=== PATIENT | female | born 1945 | race Caucasian/White ===

== ENCOUNTER → 2020-07-03 13:12 | Outpatient (BNVA) | payer BC, SELFPAY | PROVIDERS: PCP Physician Assistant; Visit Provider Hospitalist | DX: Z76.89 Persons encountering health services in other specified circumstances (principal) ==

== ENCOUNTER 2020-07-11 08:49 | Outpatient (REF) | payer BC, SELFPAY ==
--- NOTE | 2020-07-11 08:51 | CT_ITS ---
EXAMINATION: CT CHEST WITHOUT CONTRAST CLINICAL INFORMATION: Follow-up lung findings on previous chest CT COMPARISON: Previous chest CTA August 2019 TECHNIQUE: Multidetector volumetric CT imaging of the chest was done. Axial MIP volume rendering provided. Sagittal and coronal reformatted images were obtained. This CT examination was performed using dose optimization techniques as appropriate, variously including the following: *Automated exposure control *Adjustment of mA and/or kV according to patient size (this includes techniques or standardized protocols for targeted exams where dose is matched to indication/reason for exam; i.e. 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 In the left lower lobe is appears slightly improved from previous exam. This does not appear appreciably changed in the right middle and right lower lobe from August 2019 exam. The previously identified increased interstitial markings and areas of groundglass attenuation on August 2019 exam are no longer seen. There is a 3 x 7 mm peripheral or subpleural right upper lobe nodule and adjacent increased reticular markings for example axial image 111 series 7. This appears slightly decreased in size from 7 x 7 mm on previous exam. There is linear scarring or subsegmental atelectasis in the bilateral anterior upper lobes that is stable. MEDIASTINUM: The heart is upper normal in size. There is mild coronary artery calcification. There is no pericardial effusion. The thoracic aorta is normal in caliber. There are small mediastinal lymph nodes. The visualized thyroid gland is unremarkable. There is a large esophageal hernia. PLEURA: There is a left posterior medial diaphragmatic hernia containing fat. There is no pleural effusion or pleural thickening. AXILLA: No lymphadenopathy. UPPER ABDOMEN: Unremarkable. OSSEOUS STRUCTURES: There are degenerative changes of the spine. There is a probable T1 vertebral body hemangioma. There may be a bone infarct in the left humeral head. CT/CT chest wo con IMPRESSION: Right middle and bilateral lower lobe atelectasis or small infiltrates. This appears slightly improved in the left lower lobe and unchanged on the right. Slight interval decrease in size in the now 3 x 7 mm peripheral right upper lobe nodule The previously identified increased interstitial markings and groundglass attenuation on August 2019 exam is no longer seen. Large esophageal hernia. Upper normal-size heart mild coronary artery calcification.
== END 2020-07-11 08:50 | disposition home or self-care (01) ==
LOC: HO.CT 08:49
PROVIDERS: PCP Physician Assistant; Visit Provider Hospitalist
DX: R91.8 Other nonspecific abnormal finding of lung field (principal); J18.9 Pneumonia, unspecified organism
CPT/HCPCS: 71250

== ENCOUNTER 2020-08-28 08:23 | Outpatient (REF) | payer BC, SELFPAY ==
--- NOTE | 2020-08-28 08:26 | FL_ITS ---
EXAMINATION: XR GI SERIES CLINICAL INFORMATION: Hiatal hernia COMPARISON: Previous chest CT 07/11/2020 TECHNIQUE: Upper GI was performed using thin and thick barium and effervescent granules. A barium tablet was also administered. FINDINGS: There is abnormal esophageal motility with tertiary contractions. There is a moderate size esophageal hernia. This appears to represent a hiatal hernia. There is temporary stasis of the barium tablet first in the distal esophagus at the GE junction and then in the hiatal hernia above the diaphragm. No significant reflux is seen. No fold thickening, mass, stricture or ulcer is seen. FLUOROSCOPY TIME: 2.2 minutes DOSE AREA PRODUCT: 77 scott per centimeter squared. Total dose 164 mg. 44 saved fluoroscopic images. FL/FL upper GI series IMPRESSION: Abnormal esophageal motility. Moderate size hiatal hernia. Stasis of the barium tablet first at the GE junction and second in the hiatal hernia.
== END 2020-08-28 08:24 | disposition home or self-care (01) ==
LOC: HO.XRAY 08:23
PROVIDERS: PCP Physician Assistant; Visit Provider Internal Medicine Gastroenterology
DX: K44.9 Diaphragmatic hernia without obstruction or gangrene (principal)
CPT/HCPCS: 74240

== ENCOUNTER 2020-09-06 | Outpatient (REF) | payer BC, SELFPAY | END 2020-09-06 00:01 | disposition home or self-care (01) | LOC: HO.VC | PROVIDERS: Visit Provider Internal Medicine | DX: Z23 Encounter for immunization (principal) | CPT/HCPCS: 0011A ==

== ENCOUNTER 2020-09-25 09:47 | Outpatient (REF) | payer BC, SELFPAY ==
[2020-09-25 10:59] LABS: Hematocrit 45.6 % (37-47); Hemoglobin 14.2 g/dl (12.0-16.0); Mean Corpuscular HGB Conc 31.1 g/dl (31.0-35.0); Mean Corpuscular Hemoglobin 28.2 pg (27.0-33.0); Mean Corpuscular Volume 90.7 fL (80-98); Mean Platelet Volume 9.9 fL (9.4-12.3); Platelet Count 282 X10*3/uL (160-400); Red Blood Count 5.03 X10*6/uL (4.20-5.50); Red Cell Distribution Width 13.7 % (11.0-16.0); White Blood Count 8.8 X10*3/uL (4.8-10.8)
[2020-09-25 11:24] LABS: Estimated Average Glucose 120 mg/dL; Hemoglobin A1c % 5.8 %
[2020-09-25 11:34] LABS: Alanine Aminotransferase 15 U/L (0-31); Alkaline Phosphatase 85 U/L (39-117); Anion Gap 11 (12-20); Aspartate Amino Transferase 14 U/L (5-31); Blood Urea Nitrogen 18 mg/dL (9-16); Calcium 9.2 mg/dL (8.4-10.2); Carbon Dioxide 27 mmol/L (22-29); Chloride 107 mmol/L (96-108); Cholesterol 156 mg/dL; Estimated Glomerular Filt Rate > 60; Glucose Fasting 108 mg/dL (60-99); HDL Cholesterol 49 mg/dL; LDL Cholesterol Calculated 89 mg/dl; Potassium 4.4 mmol/L (3.3-5.1); Sodium 141 mmol/L (135-145); Total Protein 6.8 g/dL (6.5-8.0); Triglycerides 91 mg/dL
[2020-09-25 11:39] LABS: TSH reflex Free T4 1.45 uIU/mL (0.32-4.0)
== END 2020-09-25 09:48 | disposition home or self-care (01) ==
LOC: HO.LAB 09:47
PROVIDERS: PCP Physician Assistant; Visit Provider Physician Assistant
DX: I10 Essential (primary) hypertension (principal); Z13.1 Encounter for screening for diabetes mellitus
CPT/HCPCS: 36415; 80053; 80061; 83036; 84443; 85027

== ENCOUNTER 2020-10-03 | Outpatient (REF) | payer BC, SELFPAY | END 2020-10-03 00:01 | disposition home or self-care (01) | LOC: HO.VC | PROVIDERS: Visit Provider Internal Medicine | DX: Z23 Encounter for immunization (principal) | CPT/HCPCS: 0012A ==

== ENCOUNTER → 2020-10-16 12:51 | Outpatient (BNVA) | payer BC, SELFPAY | PROVIDERS: PCP Physician Assistant; Visit Provider Hospitalist ==

== ENCOUNTER 2020-12-20 08:30 | Outpatient (REF) | payer BC, SELFPAY ==
--- NOTE | ~2020-12-20 | MM_ITS ---
EXAMINATION: MM SCREENING DIGITAL BREAST TOMOSYNTHESIS, BILATERAL CLINICAL INFORMATION: Screening. Asymptomatic. The lifetime risk of breast cancer based on the Tyrer-Cuzick Model is 2.5%. COMPARISON: Mammography: March 10, 2019 and studies dating back to April 29, 2012 TECHNIQUE: Digital breast tomosynthesis is performed in both the craniocaudal and mediolateral oblique views along with computer-aided detection (CAD). Synthesized 2D images are generated from the tomosynthesis. FINDINGS: There are scattered areas of fibroglandular density (ACR BI-RADS breast composition Category b). There are no significant masses, abnormal calcifications, or other abnormalities. MM/MM tomosynthesis screening BI IMPRESSION: There are no significant changes from prior study. ASSESSMENT: BI-RADS 1: Negative RECOMMENDATION: Routine annual mammography screening. This patient's information was entered into a reminder system with a target due date for their next mammogram.
== END 2020-12-20 08:31 | disposition home or self-care (01) ==
LOC: HO.MAMMO 08:30
PROVIDERS: Visit Provider Physician Assistant
DX: Z12.31 Encounter for screening mammogram for malignant neoplasm of breast (principal)
CPT/HCPCS: 77063; 77067

== ENCOUNTER → 2021-04-02 10:59 | Outpatient (BNVA) | payer BC, SELFPAY | PROVIDERS: PCP Physician Assistant; Referring Provider Physician Assistant; Visit Provider Internal Medicine Cardiovascular Disease | DX: I10 Essential (primary) hypertension (principal); I51.81 Takotsubo syndrome; I21.29 ST elevation (STEMI) myocardial infarction involving other sites; J69.0 Pneumonitis due to inhalation of food and vomit; R91.8 Other nonspecific abnormal finding of lung field; Z98.890 Other specified postprocedural states | CPT/HCPCS: 93005 ==

== ENCOUNTER 2021-05-29 08:41 | Outpatient (REF) | payer BC, SELFPAY ==
--- NOTE | ~2021-05-29 | MM_ITS ---
EXAMINATION: BONE DENSITOMETRY CLINICAL INDICATION: Asymptomatic menopausal state. COMPARISON: Previous BD dated 01/27/2018 and baseline BD dated 09/20/2008. TECHNIQUE: Using a [employer] DXA System (software version: 13.1) manufactured by [employer], dual-energy x-ray absorptiometry was performed of the lumbar spine and left hip. The images are of good technical quality. Summary results are attached. FINDINGS: AP SPINE L1-L4:??There is dextrocurvature lumbar spine and degenerative changes which may cause overestimation of the lumbar bone mineral density.? Current: BMD 1.097 g/cm2, Z-score 0.6, T-score -0.7, normal, 14.2% increase from previous, 26.5% increase from baseline (<5% change is not significant). Prior: BMD 0.961 g/cm2. Baseline: BMD 0.867 g/cm2. LEFT FEMUR, NECK: Current: BMD 0.634 g/cm2, Z-score -1.3, T-score -2.9, osteoporosis. Prior: BMD 0.639 g/cm2. Baseline: BMD 0.745 g/cm2. LEFT FEMUR, TOTAL: Current: BMD 0.665 g/cm2, Z-score -1.4, T-score -2.7, osteoporosis, 5.7% increase from previous, 8.4% decrease from baseline (<5% change is not significant). Prior: BMD 0.629 g/cm2. Baseline: BMD 0.726 g/cm2. IDENTIFIED RISK FACTORS: Height loss, history of fracture (adult). Early menopause, secondary osteoporosis, hysterectomy, bilateral oophorectomy. HISTORY OF FRACTURE: Wrist. Humerus/shoulder. MEDICATIONS: Calcium supplements or multivitamin, vitamin D, bisphosphonates. MM/XR DEXA axial skeleton IMPRESSION: 1. DIAGNOSIS: Osteoporosis based on the lowest T-score value of -2.9 in the femoral neck applying World Health Organization criteria.? 2. 10-YEAR FRACTURE RISK PREDICTION, FRAX: According to the guidelines, FRAX calculation should only be performed on patients in the osteopenia bone density category. Therefore, FRAX was not performed on this patient. 3. Treatment Recommendations: NOF guidelines recommend consideration for treatment in postmenopausal women and men age 50 and older presenting with the following: -A hip or vertebral (clinical or morphometric) fracture. -T-score less than or equal to -2.5 at the femoral neck or spine after appropriate evaluation to exclude secondary causes. -Low bone mass at the hip or spine and a 10-year fracture probability by FRAX of greater than or equal to 3% for hip fracture or greater than or equal to 20% for major osteoporotic fracture based on the [place] adapted WHO algorithm. 4.?Other Recommendations: All treatment decisions require clinical judgment and consideration of individual patient factors, including patient preferences, comorbidities, previous drug use, risk factors not captured in the FRAX model (e.g. frailty, falls, vitamin D deficiency, increased bone turnover, interval significant decline in bone density) and possible under or overestimation of fracture risk by FRAX. Additional medical evaluation for secondary cause of low bone mineral density may be appropriate.?? FUTURE SCAN RECOMMENDATION: People with diagnosed cases of osteoporosis or at high risk for fracture should have regular bone mineral density tests. For patients eligible for Medicare, routine testing is allowed once every 2 years. The testing frequency can be increased to one year for patients who have rapidly progressing disease, those who are receiving or discontinuing medical therapy to restore bone mass, or have additional risk factors.
[2021-05-29 10:04] LABS: Hematocrit 44.2 % (37-47); Hemoglobin 13.7 g/dl (12.0-16.0); Mean Corpuscular Volume 90.2 fL (80-98); Mean Platelet Volume 9.3 fL (9.4-12.3); Platelet Count 314 X10*3/uL (160-400); Red Cell Distribution Width 13.8 % (11.0-16.0); White Blood Count 9.4 X10*3/uL (4.8-10.8)
[2021-05-29 10:38] LABS: Alanine Aminotransferase 17 U/L (0-31); Albumin Level 3.9 g/dL (3.5-5.0); Alkaline Phosphatase 92 U/L (39-117); Anion Gap 11 (12-20); Aspartate Amino Transferase 14 U/L (5-31); Bilirubin Total 0.8 mg/dL (0.0-1.0); Blood Urea Nitrogen 14 mg/dL (9-16); Calcium 9.7 mg/dL (8.4-10.2); Carbon Dioxide 29 mmol/L (22-29); Chloride 105 mmol/L (96-108); Cholesterol 148 mg/dL; Estimated Glomerular Filt Rate > 60; Glucose Fasting 102 mg/dL (60-99); HDL Cholesterol 44 mg/dL; LDL Cholesterol Calculated 84 mg/dl; Potassium 4.6 mmol/L (3.3-5.1); Sodium 140 mmol/L (135-145); Total Protein 6.6 g/dL (6.5-8.0); Triglycerides 102 mg/dL
[2021-05-29 10:43] LABS: Estimated Average Glucose 123 mg/dL; Hemoglobin A1C 151.0444 umol/L; Hemoglobin A1c % 5.9 %
[2021-05-29 11:04] LABS: TSH reflex Free T4 1.66 uIU/mL (0.32-4.0)
[2021-05-29 11:31] LABS: Creatinine Urine 123.22 mg/dL; Microalbum/Creatinine Ratio Ur 7.3 ug/mg cr
== END 2021-05-29 08:42 | disposition home or self-care (01) ==
LOC: HO.MAMMO 08:41
PROVIDERS: PCP Physician Assistant; Visit Provider Physician Assistant
DX: Z13.820 Encounter for screening for osteoporosis (principal); I10 Essential (primary) hypertension; Z78.0 Asymptomatic menopausal state
CPT/HCPCS: 36415; 77080; 80053; 80061; 82043; 83036; 84443; 85027

== ENCOUNTER 2021-06-25 09:37 | Outpatient (REF) | payer MEDICARE, SELFPAY ==
--- NOTE | ~2021-06-25 | CT_ITS ---
EXAMINATION: CT CHEST WITHOUT CONTRAST CLINICAL INFORMATION: Follow-up pulmonary findings/areas of atelectasis or infiltrate and nodule. COMPARISON: Previous chest CT scans, most recent July 2020. TECHNIQUE: Multidetector volumetric CT imaging of the chest was done. Axial MIP volume rendering provided. Sagittal and coronal reformatted images were obtained. This CT examination was performed using dose optimization techniques as appropriate, variously including the following: *Automated exposure control *Adjustment of mA and/or kV according to patient size (this includes techniques or standardized protocols for targeted exams where dose is matched to indication/reason for exam; i.e. extremities or head) *Use of iterative reconstruction technique DLP: 166 mGy-cm. FINDINGS: LUNGS: There is continued interval decrease in the small nodule or area of scarring or chronic subsegmental atelectasis in the posterior segment of the right upper lobe, for example axial image 92 series 5. There is question of a 6 mm right upper lobe nodule versus endobronchial soft tissue opacification, axial image 131 series 5. In retrospect, this measured 6 mm, axial image 149 series 5 on 08/11/2019 exam, 6 mm axial image 156 series 7 on July 2020 exam and does not appear appreciably changed. There is persistent atelectasis or small infiltrate seen in the right middle and bilateral lower lobes. This does not appear appreciably changed in the right middle and right lower lobes. There is increasing airspace disease or atelectasis in the left lower lobe. There is probable underlying right middle and bilateral lower lobe bronchial wall thickening. There is minimal atelectasis in the inferior segment of the lingula that appears unchanged. No endotracheal lesion. MEDIASTINUM: The heart is upper normal in size. There is coronary artery calcium. There is no pericardial effusion. The thoracic aorta is normal in caliber. There are small mediastinal lymph nodes. There are no enlarged lymph nodes. There is a large esophageal hernia. PLEURA: There is no pleural effusion. No pleural mass or thickening. There is a left posterior diaphragmatic hernia containing fat. AXILLA: No lymphadenopathy. UPPER ABDOMEN: Unremarkable. OSSEOUS STRUCTURES: There are degenerative changes of the spine. Stable probable T1 vertebral body hemangioma and sclerotic lesion in the left humeral head. CT/CT chest wo con IMPRESSION: Right middle and bilateral lower lobe atelectasis/infiltrates; this is slightly increased in the left lower lobe compared to previous exams. There is probable bronchial wall thickening as well. 6 mm central right upper lobe nodule versus bronchial soft tissue opacification. In retrospect, this is stable probably back to August 2019 exam. Upper normal-size heart and coronary artery calcification. Large esophageal hernia. Left diaphragmatic hernia containing fat. Fleischner guidelines were followed.
== END 2021-06-25 09:38 | disposition home or self-care (01) ==
LOC: HO.CT 09:37
PROVIDERS: PCP Physician Assistant; Visit Provider Hospitalist
DX: R91.8 Other nonspecific abnormal finding of lung field (principal)
CPT/HCPCS: 71250

== ENCOUNTER → 2021-07-19 12:32 | Outpatient (BNVA) | payer MEDICARE, SELFPAY | PROVIDERS: PCP Physician Assistant; Visit Provider Hospitalist | DX: J45.40 Moderate persistent asthma, uncomplicated (principal); J18.9 Pneumonia, unspecified organism; R91.8 Other nonspecific abnormal finding of lung field; K44.9 Diaphragmatic hernia without obstruction or gangrene | CPT/HCPCS: 99212 ==

== ENCOUNTER 2021-12-24 13:11 | Outpatient (REF) | payer MEDICARE, SELFPAY ==
--- NOTE | ~2021-12-24 | MM_ITS ---
EXAMINATION: MM SCREENING DIGITAL BREAST TOMOSYNTHESIS, BILATERAL CLINICAL INFORMATION: Screening. Asymptomatic. The lifetime risk of breast cancer based on the Tyrer-Cuzick Model is 2%. COMPARISON: Mammography: 12/20/2020, 03/10/2019, 01/14/2018 TECHNIQUE: Digital breast tomosynthesis is performed in both the craniocaudal and mediolateral oblique views along with computer-aided detection (CAD). Synthesized 2D images are generated from the tomosynthesis. FINDINGS: There are scattered areas of fibroglandular density (ACR BI-RADS breast composition Category b). Parenchymal pattern is similar to prior studies. Again, there are scattered minor asymmetries. No developing density or architectural abnormality. There are no significant masses, abnormal calcifications, or other abnormalities. The axilla are unremarkable. MM/MM tomosynthesis screening BI IMPRESSION: No mammographic evidence of malignancy. ASSESSMENT: BI-RADS 2: Benign RECOMMENDATION: Routine annual mammography screening. This patient's information was entered into a reminder system with a target due date for their next mammogram.
== END 2021-12-24 13:12 | disposition home or self-care (01) ==
LOC: HO.MAMMO 13:11
PROVIDERS: Visit Provider Physician Assistant
DX: Z12.31 Encounter for screening mammogram for malignant neoplasm of breast (principal)
CPT/HCPCS: 77063; 77067

== ENCOUNTER → 2022-03-19 12:49 | Outpatient (BNVA) | payer MEDICARE, SELFPAY | PROVIDERS: PCP Physician Assistant; Visit Provider Hospitalist | DX: J45.40 Moderate persistent asthma, uncomplicated (principal); J18.9 Pneumonia, unspecified organism; R91.8 Other nonspecific abnormal finding of lung field; K44.9 Diaphragmatic hernia without obstruction or gangrene | CPT/HCPCS: 99212 ==

== ENCOUNTER → 2022-04-03 10:56 | Outpatient (BNVA) | payer MEDICARE, SELFPAY | PROVIDERS: PCP Physician Assistant; Referring Provider Physician Assistant; Visit Provider Internal Medicine Cardiovascular Disease | DX: I51.81 Takotsubo syndrome (principal); I10 Essential (primary) hypertension | CPT/HCPCS: 99212 ==

== ENCOUNTER 2022-06-11 08:14 | Day surgery (SDC) | payer MEDICARE, SELFPAY ==
--- NOTE | 2022-06-10 12:49 | P.CONAN_ITS ---
Documented by User: Silvana Cooney NP 06/10/22 12:51 HPI - Anesthesia Eval Consult details Narrative: 77yo F for Upper Endoscopy and Colonoscopy Hx Takatsubo CMP, resolved per 03/2022 Cardiac Office visit, pt is active without symptoms PMFSH Active Problems Active Problems: All Active Problems (Updated 06/10/22 @ 11:51 by Anjali Teran RN) Screening for diabetes mellitus (DM) (Acute) HTN (hypertension) (Acute) Annual physical exam (Acute) Post-menopausal (Acute) Osteoporosis (Acute) Hiatal hernia (Acute) Asthma (Acute) Pneumonia (Acute) Pulmonary nodules (Acute) Takotsubo cardiomyopathy (Acute) Past Medical History Medical History Asthma Hiatal hernia Hyperlipidemia Pneumonia Pulmonary nodules Takotsubo cardiomyopathy Tubular adenoma Ulcerative proctitis Family History Family History Daughter No problems noted. Father No problems noted. Mother No problems noted. Sister In good health Sister In good health Brother In good health Son In good health Daughter In good health Surgical History Surgical History H/O wrist surgery H/O: hysterectomy History of colonoscopy Social History Social History Housing: House Alcohol intake: never Patient Tobacco Use Status: Never used Tobacco e-Cigarette/Vaping Use: Never Used Second Hand Smoke Exposure: No Use of substances other than those prescribed or required for medical reasons: No Are you DNR?: No Advance Directives: No Advance Directives Information Provided: Yes service: No Current occupational status: retired Cognitive needs: No Hearing needs: No Vision needs: No Meds Allergies Allergy/AdvReac Type Severity Reaction Status Date / Time all antibiotics Allergy Severe Colitis Uncoded 05/20/22 13:27 Home Medications Medication Instructions Recorded Confirmed Last Taken Type aspirin 81 mg tablet,delayed 81 mg PO DAILY 07/03/20 05/20/22 Unknown History release lactobacillus combination no.8 3 3,000 mmu cells PO DAILY 07/03/20 05/20/22 Unknown History billion cell capsule (Adult Probiotic) multivitamin 1 tab PO DAILY 07/03/20 05/20/22 Unknown History ascorbate calcium (vitamin C) 500 500 mg PO DAILY 04/02/21 05/20/22 Unknown History mg tablet cholecalciferol (vitamin D3) 25 25 mcg PO DAILY 04/02/21 05/20/22 Unknown History mcg (1,000 unit) capsule omega-3 fatty acids 1,000 mg 1,000 mg PO DAILY 04/02/21 05/20/22 Unknown History capsule (Fish Oil Concentrate) atorvastatin 80 mg tablet 1 tab PO DAILY 06/10/22 06/10/22 Unknown History dicyclomine 20 mg tablet 1 tab PO 06/10/22 06/10/22 Unknown History Exam Exam Date and Time: June 10, 2022 1249 Narrative Narrative: EKG 03/2022 SB @ 56 Assessment and Plan Assessment Anesthesia Assessment: Chart Reviewed Documented by User: Sabine Shearer MD 06/11/22 11:27 [facility] Past Medical History Medical History Asthma Hiatal hernia Hyperlipidemia Pneumonia Pulmonary nodules Takotsubo cardiomyopathy Tubular adenoma Ulcerative proctitis Family History Family History Daughter No problems noted. Father No problems noted. Mother No problems noted. Sister In good health Sister In good health Brother In good health Son In good health Daughter In good health Family history of problems with anesthesia: No Surgical History Surgical History H/O wrist surgery H/O: hysterectomy History of colonoscopy History of Problems with Anesthesia: Yes (PONV) Social History Social History Housing: House Alcohol intake: never Patient Tobacco Use Status: Never used Tobacco e-Cigarette/Vaping Use: Never Used Second Hand Smoke Exposure: No Use of substances other than those prescribed or required for medical reasons: No Are you DNR?: No Advance Directives: No Advance Directives Information Provided: Yes service: No Current occupational status: retired Cognitive needs: No Hearing needs: No Vision needs: No Meds Allergies Allergy/AdvReac Type Severity Reaction Status Date / Time all antibiotics Allergy Severe Colitis Uncoded 05/20/22 13:27 Home Medications Medication Instructions Recorded Confirmed Last Taken Type aspirin 81 mg tablet,delayed 81 mg PO DAILY 07/03/20 05/20/22 Unknown History release lactobacillus combination no.8 3 3,000 mmu cells PO DAILY 07/03/20 05/20/22 Unknown History billion cell capsule (Adult Probiotic) multivitamin 1 tab PO DAILY 07/03/20 05/20/22 Unknown History ascorbate calcium (vitamin C) 500 500 mg PO DAILY 04/02/21 05/20/22 Unknown History mg tablet cholecalciferol (vitamin D3) 25 25 mcg PO DAILY 04/02/21 05/20/22 Unknown History mcg (1,000 unit) capsule omega-3 fatty acids 1,000 mg 1,000 mg PO DAILY 04/02/21 05/20/22 Unknown History capsule (Fish Oil Concentrate) atorvastatin 80 mg tablet 1 tab PO DAILY 06/10/22 06/10/22 Unknown History dicyclomine 20 mg tablet 1 tab PO 06/10/22 06/10/22 Unknown History Exam Height,Weight and Vital Signs: Height 5 ft 5 in Weight 74.843 kg Vital Signs Temp Pulse Resp BP Pulse Ox O2 Del Method 06/11/22 09:36 96.5 F L 75 16 108/78 97 Room Air Airway Mallampati Class: II TM Dist: >3cm Neck ROM: Full Loose/Missing/Broken Teeth: Yes (Some extractions) Heart: RRR Lungs: CTAB Assessment and Plan Final Anesthetic Review Family History of Problems with Anesthesia: No History of Problems with Anesthesia: Yes (PONV) NPO: Yes ASA Class: III Final Preanesthetic Review: No Changes in Pt Med Stat, Meds/Allgs Chart Reviewed, Consent Obtained/Reviewed and Anes Risks/Benef Reviewed Patient Risk: Intermediate Procedure Risk: Low Assessment/Block/Sedation in SS: Assess/Block/Sedation-SS Anesthetic Plan Anesthetic Plan: MAC: Disposition: Standard PACU
[2022-06-11 09:28] VITALS: BMI 27.4
[2022-06-11 09:36] VITALS: BP 108/78; PULSE 75; RESP 16; TEMP 35.8; O2SAT 97
[2022-06-11] MEDS: Lactated Ringers 1,000 ML 100 ML IVCONT (09:51)
--- NOTE | 2022-06-11 10:24 | MHC.SHP ---
Pre-Procedural Eval Section A Date of Service: 06/11/22 Section B Chief Complaint: Noninfective gastroenteritis and colitis, unspecif Details of Present Illness: see H&P no changes Relevant Family History (Specify if Yes): No Relevant Social History: None Present Medications: see Short Stay Collaborative assessment Medical History: No relevant PMH History of Previous Operations: No relevant previous surgery Allergies: Allergies Allergy/AdvReac Type Severity Reaction Status Date / Time all antibiotics Allergy Severe Colitis Uncoded 05/20/22 13:27 Review of Systems Sugical H&P ROS: Negative: Constitution, Cardiovascular, Respiratory, Neurological, Psychiatric, Hem-Onc, Allergic/Immunologic, Gastrointestinal, Genitourinary, Musculoskeletal, Integumentary, Endocrine and Eyes/Ears/Nose/Throat Exam Surgical H&P Exam: Normal: HEENT, Normal: Heart, Normal: Lungs, Normal: Extremities, Normal: Abdomen, Normal: Skin and Normal: Neurological Plan Diagnosis/Plan: Unchanged I have reviewed the history and physical and performed a pertinent physical examination on my patient. No changes have occurred unless specified.
--- NOTE | 2022-06-11 11:25 | PM.OP ---
Brief Operative Note Date of Service: 06/11/22 Pre-op diagnosis: colitis abnl ugi series Post-op diagnosis: same Procedure: egd colonoscopy Surgeon: Naeem Lopez Anesthesia: MAC Was an Electronic Warfare Officer used for this Procedure?: No Estimated blood loss (mL): 5 Pathology: other Condition: stable Disposition: PACU
[2022-06-11 11:32] VITALS: BP 119/73; PULSE 72; RESP 16; TEMP 36.4; O2SAT 97
[2022-06-11 11:47] VITALS: BP 133/77; PULSE 66; RESP 16; TEMP 36.1; O2SAT 97
--- NOTE | 2022-06-11 12:40 | OP_ITS ---
SURGEON: Naeem Lopez MD INDICATIONS: 1. Abnormal upper GI series. 2. Colitis. PREOPERATIVE DIAGNOSIS: POSTOPERATIVE DIAGNOSIS: PROCEDURE PERFORMED: 1. Upper endoscopy with biopsy. 2. Colonoscopy to the terminal ileum with biopsy and snare polypectomy. ESTIMATED BLOOD LOSS: COMPLICATIONS: ANESTHESIA: Monitored anesthesia care. ASSISTANTS: SPECIMENS: DESCRIPTION OF PROCEDURE: History and physical performed. The risks and benefits of the procedure were explained to the patient. Informed consent was obtained. The procedure was performed on 06/11/2022. The patient was placed in the left lateral decubitus position. The Olympus video gastroscope was introduced into the esophagus, stomach, and duodenum. Examination was performed. The scope was removed. She was repositioned for colonoscopy. Digital rectal exam was performed and was found to be normal. The Olympus pediatric video colonoscope was introduced into the rectum and advanced to the cecum without difficulty. The cecum was identified by transillumination, palpation, and identification of ileocecal valve. Examination was performed. The scope was removed. She tolerated the procedure well and was taken to the recovery area in stable condition. FINDINGS: Upper endoscopy: 1. Esophagus: The esophagus was normal. It was slightly tortuous. There was no esophagitis. Biopsies were obtained in the EG junction. There was a 7 cm hiatal hernia. 2. Stomach: The stomach showed no evidence of masses or ulcers. There were multiple benign less than 10 mm gastric polyps, 2 of these were biopsied. These were appear consistent with fundic gland polyps. Antral biopsies were also obtained. 3. Duodenum: The bulb and second portion were normal. Colonoscopy: The terminal ileum was briefly examined and appeared normal. There was a less than 5 mm polyp in the cecum, which was removed with the biopsy forceps. A second polyp at 75 cm measuring approximately 6 mm was removed with a cold snare and then a 9 to 10 mm polyp at 25 cm was removed with a hot snare. Random biopsies were obtained from the right colon, left colon, and rectosigmoid. There did not appear to be any active colitis in the rectum as we had observed on previous examinations. Retroflexed examination did show moderate-sized internal hemorrhoids. IMPRESSION: 1. Hiatal hernia. 2. Gastric polyps. 3. Colon polyps. RECOMMENDATION: Follow up the biopsy results. MD DOROTHY Osorio/ZEV / [id number]
== END 2022-06-11 12:23 | disposition home or self-care (01) ==
PROVIDERS: PCP Physician Assistant; Visit Provider Internal Medicine Gastroenterology
PROC: (CPT 45385; principal; 2022-06-11 09:40)
DX: K52.9 Noninfective gastroenteritis and colitis, unspecified (principal); Z86.010 Personal history of colon polyps; R93.3 Abnormal findings on diagnostic imaging of other parts of digestive tract; D12.0 Benign neoplasm of cecum; D12.4 Benign neoplasm of descending colon; K63.5 Polyp of colon; K64.8 Other hemorrhoids; K31.7 Polyp of stomach and duodenum; K44.9 Diaphragmatic hernia without obstruction or gangrene; J45.909 Unspecified asthma, uncomplicated; E78.00 Pure hypercholesterolemia, unspecified; E78.5 Hyperlipidemia, unspecified; I10 Essential (primary) hypertension; Z79.51 Long term (current) use of inhaled steroids; Z79.82 Long term (current) use of aspirin; Z79.899 Other long term (current) drug therapy; Z88.0 Allergy status to penicillin; Z88.1 Allergy status to other antibiotic agents
CPT/HCPCS: 45385; 45380; 43239; 88305; 88313; 88342; J2405

== ENCOUNTER 2022-08-15 16:15 | Outpatient (REF) | payer MEDICARE, SELFPAY ==
--- NOTE | ~2022-08-15 | CT_ITS ---
EXAMINATION: CT CHEST WITHOUT CONTRAST CLINICAL INFORMATION: Abnormal lung findings. COMPARISON: CT chest without contrast 06/25/2021. TECHNIQUE: Multidetector volumetric CT imaging of the chest was done. Axial MIP volume rendering provided. Sagittal and coronal reformatted images were obtained. This CT examination was performed using dose optimization techniques as appropriate, variously including the following: *Automated exposure control *Adjustment of mA and/or kV according to patient size (this includes techniques or standardized protocols for targeted exams where dose is matched to indication/reason for exam; i.e. extremities or head) *Use of iterative reconstruction technique DLP: 152 mGy-cm FINDINGS: LOAN COLLECTOR: Well-inflated lungs. LUNGS: There is persistent scarring or chronic subsegmental atelectasis in the posterior segment right lower lobe and right middle lobe with air bronchograms likely chronic atelectasis. Again visualized is a 6 mm nodule right upper lobe likely intrabronchiolar, stable. No additional lung nodules are visualized. MEDIASTINUM: Thyroid lobes are symmetric and normal. The central trachea and the bronchi are widely patent. There are small shotty lymph nodes in the mediastinum. Heart size is normal. No pericardial effusion seen. There is a small to moderate-size hiatal hernia. CORONARY ARTERY CALCIFICATION: There is trace pericardial effusion seen. PLEURA: No pleural effusion, mass or thickening seen. AXILLA: No lymphadenopathy. UPPER ABDOMEN: Visualized liver, spleen, pancreas and bilateral adrenal glands are unremarkable. OSSEOUS STRUCTURES: No lytic or sclerotic process seen. Mild degenerative disc changes lower dorsal spine. CT/CT chest wo IV con IMPRESSION: There is right middle lobe and right lower lobe chronic atelectasis with air bronchograms, stable to last two CT chest exams. Right upper lobe intrabronchiolar 6 mm nodule is stable. Moderate-size hiatal hernia, stable. Fleischner guidelines were followed.
== END 2022-08-15 16:16 | disposition home or self-care (01) ==
LOC: HO.CT 16:15
PROVIDERS: PCP Physician Assistant; Visit Provider Hospitalist
DX: R91.8 Other nonspecific abnormal finding of lung field (principal)
CPT/HCPCS: 71250

== ENCOUNTER → 2022-09-19 12:52 | Outpatient (BNVA) | payer MEDICARE, SELFPAY | PROVIDERS: PCP Physician Assistant; Visit Provider Hospitalist | DX: J45.40 Moderate persistent asthma, uncomplicated (principal); R91.8 Other nonspecific abnormal finding of lung field; K44.9 Diaphragmatic hernia without obstruction or gangrene | CPT/HCPCS: 99212 ==

== ENCOUNTER 2022-10-10 15:00 | Outpatient (REF) | payer MEDICARE, SELFPAY ==
--- NOTE | ~2022-10-10 | XR_ITS ---
EXAMINATION: XR KNEE, RIGHT CLINICAL INFORMATION: Right knee pain COMPARISON: 12/16/2011 TECHNIQUE: Four views of the right knee. FINDINGS: Mild degenerative changes of the right knee joint with joint space narrowing and osteophytosis, seen to the greater degree in the lateral compartment. Again seen is a well-corticated 8.4 x 2.8 cm intraosseous lesion of the distal femoral metaphysis with internal serpiginous appearance which may reflect bone infarct versus cartilaginous bony lesion. XR/XR knee RT 3V IMPRESSION: 1. Mild degenerative changes of the right knee joint. 2. Again seen is a well-corticated 8.4 x 2.8 cm intraosseous lesion of the distal femoral metaphysis with internal serpiginous appearance which may reflect bone infarct versus cartilaginous bony lesion.
== END 2022-10-10 15:01 | disposition home or self-care (01) ==
LOC: HO.XRAY 15:00
PROVIDERS: PCP Physician Assistant; Visit Provider Physician Assistant
DX: M25.561 Pain in right knee (principal)
CPT/HCPCS: 73562

== ENCOUNTER 2023-01-27 08:48 | Outpatient (REF) | payer MEDICARE, SELFPAY ==
--- NOTE | ~2023-01-27 | MR_ITS ---
EXAMINATION: MR KNEE WITHOUT CONTRAST, RIGHT CLINICAL INFORMATION: Right knee pain and swelling following a twisting injury. Evaluate for a meniscal injury. COMPARISON: Right knee radiographs dated 10/10/2022. TECHNIQUE: MRI of the knee without contrast was performed using routine sequences on a high-field scanner. FINDINGS: MENISCI: Medial Meniscus: Inner margin fraying/tearing of the posterior root with an adjacent parameniscal cyst measuring up to 0.7 cm in greatest dimension. Lateral Meniscus: Oblique femoral articular surface tear of the anterior horn and root extending to the inner margin of the meniscal body and posterior horn. Incomplete inner margin radial tear of the posterior horn/root junction measuring up to 1.1 cm in ML dimension. Medial extrusion of the meniscal body. LIGAMENTS: Cruciate: Intact Collateral: Intact EXTENSOR MECHANISM: Intact ARTICULAR CARTILAGE/BONE: Patellofemoral Compartment: Inferior patellar and inferior medial trochlea articular cartilage signal heterogeneity with tiny marginal osteophytes. Medial Compartment: Mild articular cartilage thinning with tiny marginal osteophytes. Lateral Compartment: Full-thickness articular cartilage loss at the weightbearing lateral femoral condyle and lateral tibial plateau with underlying subchondral cystic change and marginal osteophytes. 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 JOINT FLUID AND BURSAE: Moderate joint effusion and trace Farrell's cyst with synovitis. MR/MR knee RT wo con IMPRESSION: 1. Oblique femoral articular surface tear of the lateral meniscus anterior horn and root extending to the inner margin of the meniscal body and posterior horn. Incomplete inner margin radial tear of the posterior horn/root junction measuring up to 1.1 cm in M dimension. Medial extrusion of the meniscal body. 2. Inner margin fraying/tearing of the medial meniscus posterior root with an adjacent parameniscal cyst measuring up to 0.7 cm. 3. Crgfbbzy-ou-qeejos lateral as well as mild patellofemoral and medial compartment osteoarthritis. Moderate joint effusion and trace Farrell's cyst with synovitis.
== END 2023-01-27 08:49 | disposition home or self-care (01) ==
LOC: HO.MRI 08:48
PROVIDERS: PCP Physician Assistant; Visit Provider Physician Assistant
DX: S83.206A Unspecified tear of unspecified meniscus, current injury, right knee, initial encounter (principal)
CPT/HCPCS: 73721

== ENCOUNTER 2023-02-05 09:30 | Outpatient (REF) | payer MEDICARE, SELFPAY | END 2023-02-05 09:31 | disposition home or self-care (01) | LOC: HO.LAB 09:30 | PROVIDERS: PCP Physician Assistant; Visit Provider Physician Assistant | DX: I10 Essential (primary) hypertension (principal) | CPT/HCPCS: 36415; 80053; 82043; 85027 ==

== ENCOUNTER 2023-02-26 10:00 | Outpatient (RCR) | payer MEDICARE, SELFPAY ==
--- NOTE | 2023-01-01 15:52 | MHC.PT.EP ---
[facility] [place] Office [place] Office [place] Office [address] [phone] F: [phone] F: [phone] F: [phone] F: [phone] Physical Therapy Plan of Care Date of Evaluation: Date of Surgery: NA Diagnosis: Pain in R knee Assessment: Gracia is a 77 year female who is referred to PT for pain in R knee . She reports of having sudden onset of pain about 3 months back. She sustained a twisting injury. She trialed managing her symptoms at home with ice and rest however due to lack of improvement she decided to trial PT. She has a MRI scheduled for end of January. On PT examination she presented with 6/10 pain with standing, walking, sit to standing, getting in and out of care and stairs, TTP along infero-medial border of patella, decreased knee ROM, decreased R LE strength, impaired posture and gait. She lives alone and is independent with all ADLS however modifies the way she does them. 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 She would benefit from skilled PT to address the aforementioned impairments and improve tolerance to functional activities. Frequency and Duration: The patient will be seen 2/week for 5 weeks Short Term Goals: 1. Pt will have 50% decrease in which will enable her sleep through the night in 2 weeks. 2. Pt will be able to move knee through full plane of motion without pain which will enable her to tolerate sit to accident examiner 3 weeks Senior Care Goals: 1. Pt will demonstrate an increase in muscle strength by 1 grade which will enable her to negotiate stairs without pain in 5 weeks. 2. Pt will be independent with all HEP for symptom management and maintenance following d/c in 5 weeks Treatment Plan: Modalities to reduce pain, spasms and effusion. Manual therapy to restore motion and function. Therapeutic exercise to improve strength and flexibility. Neuromuscular re-education for posture and balance. Therapeutic activities to return to functional activities of daily living. Electronically signed by: Alesha Menard PT DPT Please sign and return to therapist. Thank you for your referral.
== END 2023-03-21 13:49 | disposition home or self-care (01) ==
LOC: HO.PT 10:00
PROVIDERS: PCP Physician Assistant; Visit Provider Physician Assistant
DX: M25.561 Pain in right knee (principal)
CPT/HCPCS: 97014; 97110; 97161; 97530

== ENCOUNTER 2023-03-12 10:42 | Outpatient (REF) | payer MEDICARE, SELFPAY ==
--- NOTE | ~2023-03-12 | MM_ITS ---
EXAMINATION: MM SCREENING DIGITAL BREAST TOMOSYNTHESIS, BILATERAL CLINICAL INFORMATION: Screening. Asymptomatic. The lifetime risk of breast cancer based on the Tyrer-Cuzick Model is 2.2%%. COMPARISON: Mammography: 12/24/2021, 12/20/2020, and dating back to 2011. TECHNIQUE: Digital breast tomosynthesis is performed in both the craniocaudal and mediolateral oblique views along with computer-aided detection (CAD). Synthesized 2D images are generated from the tomosynthesis. FINDINGS: There are scattered areas of fibroglandular density (ACR BI-RADS breast composition Category b). Parenchymal pattern is similar to prior studies. Again, there are scattered minor nodular parenchymal asymmetries. No developing density or architectural abnormality. There no suspicious masses, suspicious developing grouped calcifications, or areas of architectural distortion. The overall parenchymal pattern is stable from prior exams. MM/MM tomosynthesis screening BI IMPRESSION: No mammographic evidence of malignancy. Stable benign findings. ASSESSMENT: BI-RADS BI-RADS 2 - Benign Findings RECOMMENDATION: Routine annual mammography screening. 1 year F/U This examination should not preclude the clinical evaluation of a suspicious palpable abnormality. This patient's information was entered into a reminder system with a target due date for their next mammogram.
== END 2023-03-12 10:43 | disposition home or self-care (01) ==
LOC: HO.MAMMO 10:42
PROVIDERS: PCP Physician Assistant; Visit Provider Physician Assistant
DX: Z12.31 Encounter for screening mammogram for malignant neoplasm of breast (principal)
CPT/HCPCS: 77063; 77067

== ENCOUNTER → 2023-03-12 10:45 | Outpatient (BNV) | payer MEDICARE, SELFPAY | PROVIDERS: PCP Physician Assistant; Visit Provider Radiology Diagnostic Radiology | DX: Z12.31 Encounter for screening mammogram for malignant neoplasm of breast (principal) | CPT/HCPCS: 77063; 77067 ==

== ENCOUNTER 2023-04-10 09:02 | Outpatient (REF) | payer MEDICARE, SELFPAY ==
[2023-04-10 10:33] LABS: Hematocrit 42.2 % (37.0-47.0); Hemoglobin 13.6 g/dl (12.0-16.0); Mean Corpuscular HGB Conc 32.2 g/dl (31.0-35.0); Mean Corpuscular Hemoglobin 29.2 pg (27.0-33.0); Mean Corpuscular Volume 90.6 fL (80.0-98.0); Mean Platelet Volume 9.7 fL (9.4-12.3); Platelet Count 266 X10*3/uL (160-400); Red Blood Count 4.66 X10*6/uL (4.20-5.50); Red Cell Distribution Width 13.6 % (11.0-16.0)
[2023-04-10 11:26] LABS: Alanine Aminotransferase 12 U/L (0-31); Albumin Level 3.7 g/dL (3.5-5.0); Alkaline Phosphatase 76 U/L (39-117); Anion Gap 8 (12-20); Aspartate Amino Transferase 13 U/L (5-31); Bilirubin Total 0.5 mg/dL (0.0-1.0); Blood Urea Nitrogen 14 mg/dL (9-16); Calcium 9.9 mg/dL (8.4-10.2); Carbon Dioxide 27 mmol/L (22-29); Chloride 107 mmol/L (96-108); Cholesterol 144 mg/dL (<200); Estimated Glomerular Filt Rate > 60; Glucose Fasting 108 mg/dL (60-99); HDL Cholesterol 45 mg/dL (>40); LDL Cholesterol Calculated 83 mg/dL (<100); Potassium 4.3 mmol/L (3.3-5.1); Sodium 138 mmol/L (135-145); Total Protein 6.8 g/dL (6.5-8.0); Triglycerides 83 mg/dL (<150)
[2023-04-10 11:42] LABS: TSH reflex Free T4 1.63 uIU/mL (0.32-4.0)
[2023-04-10 12:12] LABS: Creatinine Urine 112.07 mg/dL; Microalbum/Creatinine Ratio Ur 5.3 ug/mg cr (<30)
== END 2023-04-10 09:03 | disposition home or self-care (01) ==
LOC: HO.LAB 09:02
PROVIDERS: Absent Provider Physician Assistant; PCP Physician Assistant; Referring Provider Physician Assistant; Visit Provider Nurse Practitioner Family
DX: I10 Essential (primary) hypertension (principal); I51.81 Takotsubo syndrome
CPT/HCPCS: 36415; 80053; 80061; 82043; 82570; 84443; 85027; 93005; 99212

== ENCOUNTER 2023-04-10 09:02 | Outpatient (AMB) | payer MEDICARE, SELFPAY ==
[2023-04-10 09:20] VITALS: BP 130/72; PULSE 54
--- NOTE | 2023-04-10 09:20 | A.OFFVIS_ITS ---
Intake Vital Signs 04/10/23 09:20 Height 5 ft 5 in Weight 180 lb 5.41 oz BMI 30.0 BP 130/72 Blood Pressure Location Lt brachial Position Sitting Pulse 54 Intake Visit Reasons: 1 year follow up Intake Note: 1 year f/u Humidifier Operator Required: No Allergies all antibiotics Allergy (Severe, Uncoded 09/19/22 13:07) Colitis Medication List - Last Reconciled 04/10/23 by Nicole Yee, [employer] WORKER-C albuterol sulfate 90 mcg/actuation 2 inhalations inhalation Q6H PRN 30 days ascorbate calcium (vitamin C) 500 mg PO DAILY aspirin 81 mg PO DAILY atorvastatin 80 mg PO DAILY smquozgnpwr-bhkrgdgnt-iofrjgeq 100-62.5-25 mcg (Trelegy Ellipta) 1 inh inhalation DAILY lactobacillus combination no.8 (Adult Probiotic) 3,000 mmu cells PO DAILY lisinopril 2.5 mg PO DAILY 90 days metoprolol succinate ER 25 mg PO DAILY 90 days multivitamin 1 tab PO DAILY omega-3 fatty acids (Fish Oil Concentrate) 1,000 mg PO DAILY HPI 1 year follow up HPI Details Gracia is a 77-year-old female past medical history of hypertension, takotsubo cardiomyopathy who presents for follow-up. Today she reports she has been doing very well since her last visit 04/03/2022. She has no concerning symptoms. She denies chest discomfort, shortness of breath, palpitations, presyncope, syncope, PND, orthopnea or edema. She takes her medications as directed. She reports good activity tolerance. 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 No cardiac questions or concerns. [facility] Medical History Tubular adenoma of colon (~2009) Ulcerative proctitis Hyperlipidemia Osteoporosis (~2008) Hiatal hernia Asthma Pneumonia Pulmonary nodules Takotsubo cardiomyopathy Surgical History History of endoscopy History of surgery on wrist History of hysterectomy History of colonoscopy Family History Daughter No problems noted. Father No problems noted. Mother No problems noted. Sister In good health Sister In good health Brother In good health Son In good health Daughter In good health Social History Housing: House Alcohol intake: never Patient Tobacco Use Status: Never used Tobacco e-Cigarette/Vaping Use: Never Used Second Hand Smoke Exposure: No service: No Current occupational status: retired Cognitive needs: No Hearing needs: No Vision needs: No Review of Systems Const All systems reviewed & are unremarkable except as noted in HPI and below ENT Denies dizziness Card Denies chest pain, Denies chest pain at rest, Denies chest pain with activity, Denies rapid heart rate, Denies pedal edema, Denies edema, Denies leg edema, Denies lightheadedness, Denies palpitations, Denies dyspnea, Denies dyspnea on exertion and Denies orthopnea Resp Denies cough, Denies dyspnea and Denies dyspnea on exertion GI Denies hematochezia and Denies change in stool character Musc Denies abnormal gait, Denies limited range of motion, Denies muscle cramps, Denies muscle weakness, Denies numbness, Denies radiating pain into limb, Denies stiffness and Denies tingling Neuro Denies abnormal gait, Denies dizziness, Denies numbness and Denies tingling Endo Denies palpitations Physical Exam Vital Signs: Last Vital Signs Pulse 54 04/10/23 09:20 BP 130/72 04/10/23 09:20 BMI result Body Mass Index 30.0 Const General: cooperative, healthy appearing, comfortable and no acute distress Orientation/consciousness: patient oriented x3 Neck Neck: Yes normal visual inspection and Yes no JVD Resp Effort & Inspection: normal respiratory effort Auscultation: clear to auscultation bilaterally, no crackles, no rales, no rhonchi and no wheezes Cardio Jugular venous distension: no JVD Rate: regular rate Rhythm: regular rhythm Heart sounds: S1 normal heart sound present, S2 normal heart sound present, no gallops, no murmurs and no rubs Neuro General: patient oriented x3 Extrem General: Yes normal to inspection, No no pedal edema and No calf tenderness Psych Appearance: grossly normal Mental Status: mental status grossly normal Speech and movement: Normal speech and movement present Office Procedures EKG Details: Today, read by me, sinus bradycardia, low-voltage QRS, no change in complex morphology compared to prior EKG, low voltage could be from body habitus, rate 54 [id number], Complete Assessment & Plan Assessment & Plan (1) Takotsubo cardiomyopathy: Code(s): I51.81 - Takotsubo syndrome Plan: History of Takotsubo's cardiomyopathy in the setting of aspiration pneumonia. Cardiac catheterization done at that time showed no significant coronary artery disease. Treated with lisinopril and metoprolol for neurohormonal modulation with normalization of EF and wall motion. Last echocardiogram done 03/03/2020 showed normal EF, mild LVH, no regional wall motion abnormalities. Today she reports she has been feeling very well with no concerning symptoms. EKG today shows sinus Eliseo, low-voltage QRS which could be related to body habitus, rate 54. Complex morphology no significant change from last EKG. Labs done 02/05/2023 showed potassium 4.2, creatinine 0.66. Blood pressure 130/72, heart rate 54. Will continue current management without change. Signs and symptoms of heart failure reviewed. Will update echo prior to her next visit. Cardiology follow- up in 1 year, sooner if needed. (2) HTN (hypertension): Code(s): I10 - Essential (primary) hypertension Qualifiers: Hypertension type: essential hypertension Qualified Code(s): I10 - Essential (primary) hypertension Orders: Orders CA echo transthoracic complete 11 Months I51.81 - Takotsubo syndrome Coding Level of Care Code Est Pt Level 4 (91128) Diagnoses Takotsubo cardiomyopathy I51.81 Essential hypertension I10 Hypertension type: essential hypertension CPT Codes EKG - CPT: 18313-[id number], Complete ([id number]) Time Spent (min) 24 Comment chart review, document, interview assess
== END 2023-04-10 09:49 | disposition home or self-care (01) ==
PROVIDERS: PCP Physician Assistant; Referring Provider Physician Assistant; Visit Provider Nurse Practitioner Family
DX: I51.81 Takotsubo syndrome (principal); I10 Essential (primary) hypertension
CPT/HCPCS: 93010; 99214

== ENCOUNTER 2023-05-01 14:42 | Outpatient (AMB) | payer MEDICARE, SELFPAY ==
--- NOTE | 2023-05-01 14:59 | MHC.OFFVIS ---
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 Patient reports some time in December of this year she was lifting her grandson and twisted her knee. States same knee was injured about 15 year ago. She was referred to PT which helped with her pain. She also had an MRI done. Currently her complaint is feeling unstable, like her knee will give out with stair use. No other tx. 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 She states she has pain in her right knee which is aggravated with stair use and bending. Her pain is currently improved since her DOI. She also c/o occasional instability and feeling like her knee giving out. She had undergone physical therapy and electrode therapy which provided her relief. She has not had any other treatment. She has a history of right knee injury about 15 years ago. [facility] Medical History Tubular adenoma of colon (~2009) Ulcerative proctitis Hyperlipidemia Osteoporosis (~2008) Hiatal hernia Asthma Pneumonia Pulmonary nodules Takotsubo cardiomyopathy Surgical History History of endoscopy History of surgery on wrist History of hysterectomy History of colonoscopy Family History Daughter No problems noted. Father No problems noted. Mother No problems noted. Sister In good health Sister In good health Brother In good health Son In good health Daughter In good health Social History Housing: House Alcohol intake: never Patient Tobacco Use Status: Never used Tobacco e-Cigarette/Vaping Use: Never Used Second Hand Smoke Exposure: No service: No Current occupational status: retired Cognitive needs: No Hearing needs: No Vision needs: No Review of Systems Const All systems reviewed & are unremarkable except as noted in HPI and below Physical Exam Vital Signs: BMI result Body Mass Index 30.0 Const General: cooperative, healthy appearing, comfortable, no acute distress, well developed and alert Orientation/consciousness: patient oriented x3 HEENT Head: Yes normal to inspection, Yes normocephalic and Yes atraumatic Eyes General: appearance normal, both eyes and all related structures Resp Effort & Inspection: normal respiratory effort and able to speak in complete sentences Cardio Rate: regular rate Peripheral pulses: Peripheral pulses 2+ throughout GI Palpation (GI): Soft to palpation Skin Lesions: no lesions Rashes: no rashes Neuro General: patient oriented x3 Extrem Other: Right knee: Skin intact, no erythema or joint effusion. No tenderness along the medial or lateral joint line. Full ROM with crepitus. Negative Lisy?s. No ligamentous laxity. NVI. Results Reviewed Results Reviewed: XR right knee IMPRESSION: 1. Mild degenerative changes of the right knee joint. 2. Again seen is a well-corticated 8.4 x 2.8 cm intraosseous lesion of the distal femoral metaphysis with internal serpiginous appearance which may reflect bone infarct versus cartilaginous bony lesion. MRI left knee IMPRESSION: 1. Oblique femoral articular surface tear of the lateral meniscus anterior horn and root extending to the inner margin of the meniscal body and posterior horn. Incomplete inner margin radial tear of the posterior horn/root junction measuring up to 1.1 cm in M dimension. Medial extrusion of the meniscal body. 2. Inner margin fraying/tearing of the medial meniscus posterior root with an adjacent parameniscal cyst measuring up to 0.7 cm. 3. Rkvzmzlu-ui-lfsmsk lateral as well as mild patellofemoral and medial compartment osteoarthritis. Moderate joint effusion and trace Farrell's cyst with synovitis. Assessment & Plan Assessment & Plan (1) Osteoarthritis of right knee: Code(s): M17.11 - Unilateral primary osteoarthritis, right knee Qualifiers: Osteoarthritis type: primary Qualified Code(s): M17.11 - Unilateral primary osteoarthritis, right knee Plan She is going to continue working on her physical therapy exercises and increase activity as tolerated. If she develops symptoms with activities that limit her, she will contact me for a follow-up, otherwise as needed. Patient Instructions: Scribed for Kenyetta Moreno PA-C, by Oni Avila medical sales consultant, on 05/01/2023 at 3:00 PM Kenyetta PRAKASH PA-C, have personally reviewed and agree with the information entered by the julieta. Coding Level of Care Code New Pt Level 3 (15824) Diagnoses Primary osteoarthritis of right knee M17.11 Osteoarthritis type: primary
== END 2023-05-01 15:26 | disposition home or self-care (01) ==
PROVIDERS: PCP Physician Assistant; Visit Provider Physician Assistant
DX: M17.11 Unilateral primary osteoarthritis, right knee (principal)
CPT/HCPCS: 99203

== ENCOUNTER → 2023-05-01 14:42 | Outpatient (BNVA) | payer MEDICARE, SELFPAY | PROVIDERS: PCP Physician Assistant; Visit Provider Physician Assistant ==

== ENCOUNTER 2023-08-15 13:59 | Outpatient (REF) | payer MEDICARE, SELFPAY ==
--- NOTE | ~2023-08-15 | XR_ITS ---
EXAMINATION: XR CHEST 2 VIEWS CLINICAL INFORMATION: Dyspnea. COMPARISON: CT chest dated 08/15/2022; chest radiograph dated 08/22/2019. TECHNIQUE: Frontal and lateral views of the chest were obtained. FINDINGS: The heart, great vessels, pulmonary vasculature and mediastinum are normal. The lungs show no focal infiltrate, effusion or pneumothorax. There is a large hiatus hernia, with adjacent left base scar/subsegmental atelectasis. There is lesser left base scar/subsegmental atelectasis. There is no acute osseous abnormality. 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 XR/XR chest 2V IMPRESSION: 1. No focal infiltrate or congestive heart failure is seen. 2. There is a large hiatus hernia, with adjacent left base scar/subsegmental atelectasis. 3. There is stable mild left base scar/subsegmental atelectasis.
== END 2023-08-15 14:00 | disposition home or self-care (01) ==
LOC: HO.XRAY 13:59
PROVIDERS: PCP Physician Assistant; Visit Provider Hospitalist
DX: R06.00 Dyspnea, unspecified (principal); J45.41 Moderate persistent asthma with (acute) exacerbation; R91.8 Other nonspecific abnormal finding of lung field; K44.9 Diaphragmatic hernia without obstruction or gangrene; J40 Bronchitis, not specified as acute or chronic
CPT/HCPCS: 71046; 94640; 99212

== ENCOUNTER 2023-08-15 13:59 | Outpatient (AMB) | payer MEDICARE, SELFPAY ==
--- NOTE | 2023-08-15 14:14 | A.OFFVIS_ITS ---
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 Initially she was on Advair. She was having symptoms of wheezing and shortness of breath. She was then placed on trilogy. Trilogy was very effective for her improving her respiratory status significantly. However, insurance would not cover. Therefore she was placed on murmur. Anoro does not appear to be as effective for her. She is still requiring short-acting beta agonist. She did have a chest x-ray demonstrating some minimal atelectasis at the bases. The patient will need a repeat x-ray. She did meantime she continues to exercise and staying active. She is using the singular at nighttime which appears to be effective for her. 07/03/2020 the patient is here for pulmo janeth follow-up visit. Overall she is doing very well from a respiratory status. Has been using her respiratory medications with good effect. Has not required any rescue medication or pred nisone over the summer or fall. However, back in August when she was out to eat she aspirated her drink is started developing difficulty breathing. EMS was called and she was brought to the [facility] ED. there she had a CT scan of the chest demonstrating significant mosaic pattern and ground-glass opacities as well as a right lower lobe pneumonia. In addition to that she had multiple pulmonary nodules including a 7 mm nodule. She did rule in for an HI and was transferred to [facility]. 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 On further questioning the patient does have significant dysphagia and heartburn with reflux symptoms. Her CT scan of the chest did demonstrate a moderate hiatal hernia. She will follow-up with her mainframe software developer. 09/19/2022 the patient is here for a pulm onary follow-up visit. The patient overall is feeling better. During the last several months she did develop a respiratory illness. She did call it in we did send a medications. She did feel better afterwards. Now she is back to her baseline. She continues use the Trelegy inhaler with good effect. Sometime she does it every other day but is still works well for her. She has not required any of her rescue inhaler in the last several weeks. The patient is staying active. She continues to work part- time. She did have a CT scan of the chest done here which was personally by me. I did explain to her that she has underlying pulmonary nodules. Her pulmonary nodules have been stable now for more than 2 years. Therefore it is safe to say that there are benign. Still though will continue to monitor closely symptoms. No further serial CT scans warranted but if any symptoms were to worsen or any new symptoms arise we can we evaluate those nodules. She the CT scan also demonstrates the significant moderate size hiatal hernia. She did have an evaluation by her mainframe software developer and he was reassuring to her. Therefore she is going to continue with the reflux diet and making sure that she sleeps elevated to minimize any respiratory manifestations. 08/15/2023 the patient is here for sick visit. She has been sick now for few weeks. Initially started like a viral syndrome URI. Positive sick contacts. Now is worsening with worsening cough chest congestion. Moderate severity. Has a hard time sleeping because of the coughing.. She did test negative for COVID. The patient has been using her respiratory medications with no significant improvement. Here in the office she has significant wheezing on exam. She was given 1 treatment with albuterol and her symptoms improved. therefore, will provide her with a nebulizer machine at this time. The patient also will undergo a chest x-ray. [facility] Medical History (Updated 08/17/23 @ 21:58 by Ramon Valdovinos MD) Dyspnea Tubular adenoma of colon (~2009) Ulcerative proctitis Hyperlipidemia Osteoporosis (~2008) Hiatal hernia Asthma Pneumonia Pulmonary nodules Takotsubo cardiomyopathy Surgical History History of endoscopy History of surgery on wrist History of hysterectomy History of colonoscopy Family History Daughter No problems noted. Father No problems noted. Mother No problems noted. Sister In good health Sister In good health Brother In good health Son In good health Daughter In good health Social History Housing: House Alcohol intake: never Patient Tobacco Use Status: Never used Tobacco e-Cigarette/Vaping Use: Never Used Second Hand Smoke Exposure: No service: No Current occupational status: retired Cognitive needs: No Hearing needs: No Vision needs: No Review of Systems Const Reports fatigue, Denies fever(s) and Denies headache(s) Eyes Denies loss of vision ENT Denies vertigo, Denies dizziness, Denies headache(s) and Denies sore throat Card Denies chest pain, Denies leg edema and Denies lightheadedness Resp Reports chest congestion, Reports cough, Denies hemoptysis and Reports wheezing GI Denies abdominal pain, Denies melena, Denies constipation, Denies diarrhea and Denies vomiting Denies urinary frequency, Denies dysuria and Denies urinary urgency Musc Denies arthralgias, Denies joint swelling, Denies numbness and Denies tingling Neuro Denies Abnormal speech present, Denies behavioral changes, Denies vertigo, Denies dizziness, Denies headache(s), Denies loss of vision, Denies memory loss, Denies numbness and Denies tingling Psych Denies anxiety, Denies behavioral changes, Denies depression, Denies memory loss and Denies panic attacks Endo Reports fatigue Dawood/Lymph Denies easy bleeding and Denies easy bruising Aller/Immun Reports wheezing Physical Exam Vital Signs: Last Vital Signs Pulse 80 08/15/23 14:16 Pulse Ox 95 08/15/23 14:16 Oxygen Delivery Method Room Air 08/15/23 14:16 BMI result Body Mass Index 28.3 Const General: alert Neck Neck: Yes normal visual inspection, Yes full ROM and Yes no lymphadenopathy Chest Chest palpation & inspection: normal inspection of the chest Resp Effort & Inspection: prolonged expiratory phase Auscultation: rhonchi, wheezes and diminished lung sounds Cardio Rate: regular rate Rhythm: regular rhythm Heart sounds: S1 normal heart sound present and S2 normal heart sound present GI Palpation (GI): Soft to palpation and nontender Auscultation: normal bowel sounds Skin General skin exam: rashes and/or lesions noted Neuro Speech: No Abnormal speech present Office Procedures Nebulizer Treatment Nebulizer Treatment [id number]/MDI RX initial, or Nebulizer Subsequent Treatment Office Meds ipratropium 0.5 mg-albuterol 3 mg (2.5 mg base)/3 mL nebulization soln Performing Provider: Ramon Valdovinos MD Performing Location: [facility] [place] Pulmonology Services Administered by: Ade Tony LPN on 08/15/23 14:30 Dose Route Admin Location Dispensed Lot Number Expiration Date NDC Contractor Buyer 3 mL inhalation 3 mL [id number] 01/31/25 8326-3402-07 [employer] Assessment & Plan Assessment & Plan (1) Asthma: Code(s): J45.909 - Unspecified asthma, uncomplicated Qualifiers: Asthma complication type: with acute exacerbation Asthma persistence: persistent Asthma severity: moderate Qualified Code(s): J45.41 - Moderate persistent asthma with (acute) exacerbation (2) Pulmonary nodules: Code(s): R91.8 - Other nonspecific abnormal finding of lung field (3) Hiatal hernia: Code(s): K44.9 - Diaphragmatic hernia without obstruction or gangrene (4) Bronchitis: Code(s): J40 - Bronchitis, not specified as acute or chronic Plan nebulizer provided start prednisone start Augmentin CXR Continue Trelegy. LISA as needed Reflux diet Pulmonary nodules stable for more than 2 years. F/U 4-6 months Orders: Orders AMB Nebulizer Treatment 08/15/23 J45.909 - Unspecified asthma, uncomplicated XR chest 2V 08/15/23 R06.00 - Dyspnea, unspecified Medications: New albuterol sulfate 2.5 mg (3 mL) inhalation Q6H 30 days PRN 180 mL 11RF shortness of breath or wheezing prednisone PO daily; Take 2 tabs daily x 5 days, then 1 tablet daily x 5 days 10 days 15 tabs 0RF amoxicillin-pot clavulanate 875-125 mg 1 tab PO BID 10 days 20 tabs 0RF Coding Level of Care Code Est Pt Level 4 (34848) Diagnoses Moderate persistent asthma with acute exacerbation J45.41 Asthma complication type: with acute exacerbation Asthma persistence: persistent Asthma severity: moderate Pulmonary nodules R91.8 Hiatal hernia K44.9 Bronchitis J40 CPT Codes Nebulizer Treatment - Nebulizer Treatment, initial or subsequent: 63419- Nebulizer/MDI RX initial, or Nebulizer Subsequent Treatment ([id number]) Time Spent (min) 18
[2023-08-15 14:16] VITALS: PULSE 80; O2SAT 95; BMI 28.3
== END 2023-08-15 15:07 | disposition home or self-care (01) ==
PROVIDERS: PCP Physician Assistant; Visit Provider Hospitalist
DX: J45.41 Moderate persistent asthma with (acute) exacerbation (principal); R91.8 Other nonspecific abnormal finding of lung field; K44.9 Diaphragmatic hernia without obstruction or gangrene; J40 Bronchitis, not specified as acute or chronic
CPT/HCPCS: 99214

== ENCOUNTER 2023-09-11 13:52 | Outpatient (AMB) | payer MEDICARE, SELFPAY ==
--- NOTE | 2023-09-11 13:54 | A.OFFVIS_ITS ---
Intake Vital Signs 09/11/23 14:00 Height 5 ft 5 in Weight 182 lb BMI 30.3 BP 130/80 Blood Pressure Location Lt brachial Position Sitting Pulse 86 Pulse Oximetry (%) 98 Intake Visit Reasons: 1 Yr Follow Up COPD Allergies No Known Allergies Allergy (Verified 09/11/23 13:54) HPI HPI Comments History of Present Illness Details The patient is a 78-year-old woman known asthma COPD overlap syndrome. Initially she was on Advair. She was having symptoms of wheezing and shortness of breath. She was then placed on trilogy. Trilogy was very effective for her improving her respiratory status significantly. However, insurance would not cover. Therefore she was placed on murmur. Anoro does not appear to be as effective for her. She is still requiring short-acting beta agonist. She did have a chest x-ray demonstrating some minimal atelectasis at the bases. The patient will need a repeat x-ray. She did meantime she continues to exercise and staying active. She is using the singular at nighttime which appears to be effective for her. 07/03/2020 the patient is here for pulmo rosay follow-up visit. Overall she is doing very well from a respiratory status. Has been using her respiratory medications with good effect. Has not required any rescue medication or prednisone over the summer or fall. However, back in August when she was out to eat she aspirated her drink is started developing difficulty breathing. EMS was called and she was brought to the [facility] ED. there she had a CT scan of the chest demonstrating significant mosaic pattern and ground-glass opacities as well as a right lower lobe pneumonia. In addition to that she had multiple pulmonary nodules including a 7 mm nodule. She did rule in for an OR and was transferred to [facility]. 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 On further questioning the patient does have significant dysphagia and heartburn with reflux symptoms. Her CT scan of the chest did demonstrate a moderate hiatal hernia. She will follow-up with her furniture finisher helper. 09/19/2022 the patient is here for a pulm onary follow-up visit. The patient overall is feeling better. During the last several months she did develop a respiratory illness. She did call it in we did send a medications. She did feel better afterwards. Now she is back to her baseline. She continues use the Trelegy inhaler with good effect. Sometime she does it every other day but is still works well for her. She has not required any of her rescue inhaler in the last several weeks. The patient is staying active. She continues to work part- time. She did have a CT scan of the chest done here which was personally by me. I did explain to her that she has underlying pulmonary nodules. Her pulmonary nodules have been stable now for more than 2 years. Therefore it is safe to say that there are benign. Still though will continue to monitor closely symptoms. No further serial CT scans warranted but if any symptoms were to worsen or any new symptoms arise we can we evaluate those nodules. She the CT scan also demonstrates the significant moderate size hiatal hernia. She did have an evaluation by her furniture finisher helper and he was reassuring to her. Therefore she is going to continue with the reflux diet and making sure that she sleeps elevated to minimize any respiratory manifestations. 08/15/2023 the patient is here for sick visit. She has been sick now for few weeks. Initially started like a viral syndrome URI. Positive sick contacts. Now is worsening with worsening cough chest congestion. Moderate severity. Has a hard time sleeping because of the coughing.. She did test negative for COVID. The patient has been using her respiratory medications with no significant improvement. Here in the office she has significant wheezing on exam. She was given 1 treatment with albuterol and her symptoms improved. therefore, will provide her with a nebulizer machine at this time. The patient also will undergo a chest x-ray. 09/11/2023 the patient is here for a pulmo nary follow-up visit. The patient is feeling better. She did complete the course of prednisone and also the antibiotics. She still complains of shortness of breath with activity though. [id number]-[id number] severity. She does continue to use the Trelegy inhaler. Currently on 100. She is still having wheezing on examination. Therefore based on that will go ahead and increase her Trelegy to the 200 mcg dose. This will be helpful. Although she also has a component of chronic bronchitis. She will benefit from additional steroids but steroids have adverse effects. Therefore, due to her frequent exacerbations will start her on Daliresp. Will start her with small dose name steadily increase it to the full dose for the maximum effect. She did have a chest x-ray done still has a large hiatal hernia based on the x-ray. The patient may be symptomatic with will have her get a barium swallow to assess the degree progression. She does have a GI doctor. If we see that there is any irregularity to the mucosa or any changes to the hiatal hernia then she should follow-up for endoscopy. [facility] Medical History (Updated 09/12/23 @ 08:47 by Ramon Valdovinos MD) Asthma-COPD overlap syndrome Dyspnea Tubular adenoma of colon (~2009) Ulcerative proctitis Hyperlipidemia Osteoporosis (~2008) Hiatal hernia Asthma Pneumonia Pulmonary nodules Takotsubo cardiomyopathy Surgical History History of endoscopy History of surgery on wrist History of hysterectomy History of colonoscopy Family History Daughter No problems noted. Father No problems noted. Mother No problems noted. Sister In good health Sister In good health Brother In good health Son In good health Daughter In good health Social History Housing: House Alcohol intake: never Patient Tobacco Use Status: Never used Tobacco e-Cigarette/Vaping Use: Never Used Second Hand Smoke Exposure: No service: No Current occupational status: retired Cognitive needs: No Hearing needs: No Vision needs: No Review of Systems Const Reports fatigue, Denies fever(s) and Denies headache(s) Eyes Denies loss of vision ENT Denies vertigo, Denies dizziness, Denies headache(s) and Denies sore throat Card Denies chest pain, Denies leg edema and Denies lightheadedness Resp Reports cough, Denies hemoptysis and Reports wheezing GI Denies abdominal pain, Denies melena, Denies constipation, Denies diarrhea and Denies vomiting Denies urinary frequency, Denies dysuria and Denies urinary urgency Musc Denies arthralgias, Denies joint swelling, Denies numbness and Denies tingling Neuro Denies Abnormal speech present, Denies behavioral changes, Denies vertigo, D enies dizziness, Denies headache(s), Denies loss of vision, Denies memory loss, Denies numbness and Denies tingling Psych Denies anxiety, Denies behavioral changes, Denies depression, Denies memory loss and Denies panic attacks Endo Reports fatigue Dawood/Lymph Denies easy bleeding and Denies easy bruising Aller/Immun Reports wheezing Physical Exam Vital Signs: Last Vital Signs Pulse 86 09/11/23 14:00 BP 130/80 09/11/23 14:00 Pulse Ox 98 09/11/23 14:00 BMI result Body Mass Index 30.3 Const General: alert Neck Neck: Yes normal visual inspection, Yes full ROM and Yes no lymphadenopathy Chest Chest palpation & inspection: normal inspection of the chest Resp Effort & Inspection: prolonged expiratory phase Auscultation: no rhonchi, wheezes and diminished lung sounds Cardio Rate: regular rate Rhythm: regular rhythm Heart sounds: S1 normal heart sound present and S2 normal heart sound present GI Palpation (GI): Soft to palpation and nontender Auscultation: normal bowel sounds Skin General skin exam: rashes and/or lesions noted Neuro Speech: No Abnormal speech present Assessment & Plan Assessment & Plan (1) Asthma-COPD overlap syndrome: Code(s): J44.89 - Other specified chronic obstructive pulmonary disease (2) Asthma: Code(s): J45.909 - Unspecified asthma, uncomplicated Qualifiers: Asthma complication type: with acute exacerbation Asthma persistence: persistent Asthma severity: moderate Qualified Code(s): J45.41 - Moderate p ersistent asthma with (acute) exacerbation (3) Pulmonary nodules: Code(s): R91.8 - Other nonspecific abnormal finding of lung field (4) Hiatal hernia: Code(s): K44.9 - Diaphragmatic hernia without obstruction or gangrene Plan nebulizer provided Continue Trelegy, increase to 100->200 start Daliresp 250 LISA as needed Reflux diet barium swallow Pulmonary nodules stable for more than 2 years. F/U 4-6 months Orders: Orders FL barium swallow 09/11/23 K21.9 - Gastro-esophageal reflux disease without esophagitis Medications: New roflumilast (Daliresp) 250 mcg PO DAILY 30 days 30 tabs 11RF J44.9 - Chronic obstructive pulmonary disease, unspecified nphiedtxmoj-dydlvitkp-bqimwyrd 200-62.5-25 mcg (Trelegy Ellipta) 1 inh inhalation DAILY 90 days 3 ea 3RF Discontinued gidsjtlbjjr-ypbrekmat-mssivdja 100-62.5-25 mcg (Trelegy Ellipta) Discontinued Reason: Doctor's Order 1 inh inhalation DAILY 180 grams 3RF Coding Level of Care Code Est Pt Level 4 (05516) Diagnoses Asthma-COPD overlap syndrome J44.89 Moderate persistent asthma with acute exacerbation J45.41 Asthma complication type: with acute exacerbation Asthma persistence: persistent Asthma severity: moderate Pulmonary nodules R91.8 Hiatal hernia K44.9 Time Spent (min) 18
[2023-09-11 14:00] VITALS: BP 130/80; PULSE 86; O2SAT 98; BMI 30.3
== END 2023-09-11 14:17 | disposition home or self-care (01) ==
PROVIDERS: PCP Physician Assistant; Visit Provider Hospitalist
DX: J44.89 Other specified chronic obstructive pulmonary disease (principal); J45.41 Moderate persistent asthma with (acute) exacerbation; R91.8 Other nonspecific abnormal finding of lung field; K44.9 Diaphragmatic hernia without obstruction or gangrene
CPT/HCPCS: 99214

== ENCOUNTER → 2023-09-11 13:52 | Outpatient (BNVA) | payer MEDICARE, SELFPAY | PROVIDERS: Visit Provider Hospitalist | DX: J44.89 Other specified chronic obstructive pulmonary disease (principal); J45.41 Moderate persistent asthma with (acute) exacerbation; R91.8 Other nonspecific abnormal finding of lung field; K44.9 Diaphragmatic hernia without obstruction or gangrene | CPT/HCPCS: 99212 ==

== ENCOUNTER 2023-12-04 08:47 | Outpatient (REF) | payer MEDICARE, SELFPAY ==
--- NOTE | ~2023-12-04 | FL_ITS ---
EXAMINATION: XR FLUOROSCOPY UPPER GI WITH AIR CLINICAL INFORMATION: Follow-up hiatal hernia COMPARISON: Upper GI 2020 TECHNIQUE: Fluoroscopic air contrast upper GI examination was performed utilizing standard techniques with thin and thick barium and effervescent granules. Numerous spot images were obtained. FINDINGS: Dual and single contrast images of the esophagus demonstrate a dilated esophagus. No evidence of mass, or ulcerations identified. There is to and fro motion of the barium column with nonpropulsive tertiary contractions noted. There is episodic corkscrew appearance of the distal esophagus suggesting spasm. There is moderate narrowing of the GE junction above the hiatal hernia. There is a small increase in size of the large paraesophageal hiatal hernia, with the majority of the fundus located in the intrathoracic cavity. No significant gastroesophageal reflux was seen during the course of the examination and on reflux views. Dual contrast and single contrast images of the stomach demonstrated the majority of the fundus located in the intrathoracic cavity. There is a moderate narrowing of the stomach as it passes through the hiatus of the diaphragm. There are multiple areas of contrast pooling in the fundus of the stomach that may represent small superficial aphthous ulcers. Contrast freely passed into the gastric antrum and duodenal bulb without delay. Single and air-contrast images of the duodenal bulb demonstrate no abnormality. The duodenal sweep has a normal appearance, course, and mucosal fold appearance. The imaged proximal jejunum has a normal fold pattern and caliber. There is rapid transit of the barium column, with contrast observed in the right colon at the end of the examination. FLUOROSCOPY TIME: 8 minutes 4 seconds Number of Spot Images: 17 Number of Cine: 12 DOSE AREA PRODUCT: [id number] uGy-m2 (microgray-meter squared) FL/FL barium swallow with air IMPRESSION: 1. Esophageal dysmotility, with episodic distal esophageal spasm. 2. Moderate narrowing of the GE junction that may represent achalasia. A benign stricture cannot be ruled out. 3. Large paraesophageal hernia, which the majority the fundus is located in the intrathoracic cavity. There is a small increase in size of the hernia compared to the previous examination in 2020. Again, significant narrowing of the stomach as it passes through the diaphragmatic hiatus. 4. Multiple areas of contrast pooling in the fundus of the stomach that may represent small superficial aphthous ulcers. Recommend correlation with EGD. 5. Rapid transit of the barium column, with contrast observed in the right colon in less than 10 minutes. Etiology is unclear. This procedure was performed by Owen Sherwood PA-C, and supervised by Dr. Randolph
== END 2023-12-04 08:48 | disposition home or self-care (01) ==
LOC: HO.XRAY 08:47
PROVIDERS: PCP Physician Assistant; Visit Provider Hospitalist
DX: K21.9 Gastro-esophageal reflux disease without esophagitis (principal)
CPT/HCPCS: 74221

== ENCOUNTER → 2023-12-04 08:48 | Outpatient (BNV) | payer MEDICARE, SELFPAY | PROVIDERS: PCP Physician Assistant; Visit Provider Physician Assistant Surgical | DX: K44.9 Diaphragmatic hernia without obstruction or gangrene (principal) | CPT/HCPCS: 74246 ==

== ENCOUNTER → 2024-03-04 09:39 | Outpatient (REF) | payer MEDICARE, SELFPAY ==
--- NOTE | 2024-03-04 09:50 | CA_ITS ---
Transthoracic Echocardiogram Patient (Last, First, Middle): Gracia Trinidad L Gender: Female Date of : 1945 Age: 78 Procedure Date: 03/04/2024 Procedure Type: Transthoracic Echocardiogram Location: OP Height: 165.1 cm Weight: 77.11 kg BSA: 1.85 m2 Heart Rate: bpm BP: 124 / 81 mmHg Pigment Pumper: WILL Referring MD: Nicole Yee BUSINESS CONTINUITY ANALYST-Helder [employer]acer Machine Operator: Eduard Mark MD Symptoms: I51.81 - Takotsubo syndrome Study Quality: Technically Difficult ECG Rhythm: Sinus Conclusions: - 1. Normal LV ejection fraction with LVEF of 60-65% 2. Mild mitral calcification with normal cardiac valvular Dopplers 3. Normal RV systolic pressure Findings Left Ventricle Normal left ventricular size, thickness, and systolic function. The visually estimated ejection fraction is between 60-65%. Regional wall motion abnormalities can not be excluded due to suboptimal endocardial definition. Spectral Doppler is indicative of a normal filling pattern. Right Ventricle The right ventricle was not well visualized. Atria The left atrium is normal in size. Interatrial shunt cannot be excluded. The right atrium was not well visualized. Aortic Valve The aortic valve was not well visualized. There is mild calcification of the aortic valve. There is no aortic valve stenosis. There is no aortic valve regurgitation. Mitral Valve The mitral valve was not well visualized. There is mild mitral annular calcification. There is trace mitral valve regurgitation. There is no mitral valve stenosis. Pulmonic Valve The pulmonic valve was not well visualized. Tricuspid Valve Likely normal tricuspid valve structure and function. There is trace tricuspid valve regurgitation. The right ventricular systolic pressure is normal. The right ventricular systolic pressure is 19 mmHg. Normal right atrial pressure. There is no evidence of pulmonary hypertension. Great Vessels The pulmonary artery was not well visualized. There is no dilatation of the ascending aorta measuring 3.10 cm. Venous The inferior vena cava is normal in size and collapses greater than 50% with inspiration. Pericardium/Pleural There is no evidence of pericardial effusion. Prior Study Comparison No significant change compared to prior study dated: 03/03/2020. Recommendations, Care & Conclusions Recommend contrast in the future to improve endocardial definition. Measurements 2D Linear Measurements IVSd: 0.91 0.6-0.9/0.6-1.0 cm LVIDd: 4.69 3.9-5.3/4.2-5.9 cm LVIDd Index: 2.54 2.4-3.2/2.2-3.1 cm/m2 LVIDs: 3.19 2.0-3.6 cm LVPWd: 0.96 0.7-1.1 cm LA Diam: 3.80 2.7-3.8/3.0-4.0 cm LAIDs Index: 2.05 1.5-2.3 cm/m2 LV Mass: 185.90 67-162/88-224 g LV Mass Index: 100.49 43-95/49-115 g/m2 LVOT Diam: 2.10 3.0+(-)1.3 cm 2D Systolic Function EF 4C: 61.90 >55% EF 2C: 64.30 >55% EF BiP: 60.90 >55% Mitral Valve MV Pk E: 0.66 MV PK A: 0.59 MV Decel Time: 255.00 E/A: 1.10 E'Lateral: 5.33 E'Medial: 4.90 E/E' Med: 13.40 E/E' Lat: 12.30 PHT: 75.00 MVA PHT: 2.93 Decel [place]: 2.57 Aortic Valve AoV Pk Jae: 0.97 AoV Mn Jae: 0.72 AoV VTI: 0.23 AoV Pk Grad: 4.00 Aov Mn Grad: 2.00 MEE Cont.VTI: 2.91 LVOT LVOT Pk Jae: 0.83 LVOT Mn Jae: 0.53 LVOT VTI: 0.20 LVOT Pk Grad: 3.00 LVOT Mn Grad: 1.00 LVOT Diam: 2.10 LVOT Area: 3.46 Diastolic Function MV Pk E: 0.66 MV Pk A: 0.59 E/A: 1.10 E'Medial: 4.90 E/E' Med: 13.40 E' Laterial: 5.33 E/E' Lat: 12.30 Right Ventricle TAPSE (mm): 22.60 TVS' Jae: 13.80 Tricuspid Valve TR Pk Jae: 2.00 TR Pk Grad: 16.00 RA Press: 3.00 RVSP: 19.00 Great Vessels Aorta Sinus of Valsalva: 3.25 2.0-3.[address] [place]: 2.26 1.7-3.4 cm Ao Asc: 3.10 2.1-3.4 cm Updated in Other Vendor System with Status of Final Eduard Mark MD electronically signed on 03/04/2024 12:16:33 PM with status of Final
== END ==
LOC: HO.CARD 09:39
PROVIDERS: PCP Physician Assistant; Visit Provider Nurse Practitioner Family
DX: I51.81 Takotsubo syndrome (principal)
CPT/HCPCS: 93306

== ENCOUNTER → 2024-03-04 09:50 | Outpatient (BNV) | payer MEDICARE, SELFPAY | PROVIDERS: PCP Physician Assistant; Visit Provider Internal Medicine Cardiovascular Disease | DX: I51.81 Takotsubo syndrome (principal); I35.8 Other nonrheumatic aortic valve disorders; I34.81 Nonrheumatic mitral (valve) annulus calcification | CPT/HCPCS: 93306 ==

== ENCOUNTER 2024-03-17 09:36 | Outpatient (REF) | payer MEDICARE, SELFPAY ==
--- NOTE | ~2024-03-17 | MM_ITS ---
EXAMINATION: MM SCREENING DIGITAL BREAST TOMOSYNTHESIS, BILATERAL CLINICAL INFORMATION: Screening. Asymptomatic. COMPARISON: Mammography: This study is compared with prior exams dating back to 2006. TECHNIQUE: Digital breast tomosynthesis is performed in both the craniocaudal and mediolateral oblique views along with computer-aided detection (CAD). Synthesized 2D images are generated from the tomosynthesis. FINDINGS: There are scattered areas of fibroglandular density (ACR BI-RADS breast composition Category b). There are no significant masses, abnormal calcifications, or other abnormalities. Parenchymal pattern is stable. Benign calcifications and focal asymmetries bilaterally again seen. MM/MM tomosynthesis screening BI IMPRESSION: No mammographic evidence of malignancy. ASSESSMENT: BI-RADS BI-RADS 2 - Benign Findings RECOMMENDATION: Routine annual mammography screening. 1 year F/U This examination should not preclude the clinical evaluation of a suspicious palpable abnormality. This patient's information was entered into a reminder system with a target due date for their next mammogram. Electronically signed by: Erica Alexandre MD 04/14/2024 10:01 AM EDT
== END 2024-03-17 09:37 | disposition home or self-care (01) ==
LOC: HO.MAMMO 09:36
PROVIDERS: PCP Physician Assistant; Visit Provider Physician Assistant
DX: Z12.31 Encounter for screening mammogram for malignant neoplasm of breast (principal)
CPT/HCPCS: 77063; 77067

== ENCOUNTER 2024-04-07 09:55 | Outpatient (AMB) | payer MEDICARE, SELFPAY ==
[2024-04-07 10:05] VITALS: BP 130/62; PULSE 59; BMI 31.5
--- NOTE | 2024-04-07 10:05 | MHC.OFFVIS ---
Vital Signs 04/07/24 10:05 Height 5 ft 5 in Weight 189 lb 2.506 oz BMI 31.5 BP 130/62 Blood Pressure Location Lt brachial Position Sitting Pulse 59 Pulse Source Monitor Intake Visit Reasons: 1Y Echo Intake Note: 1 yr f/up Motor Vehicle Technician Required: No Accompanied by: Self / Same As Patient Allergies No Known Allergies Allergy (Verified 09/11/23 13:54) Medication List - Last Reconciled 04/07/24 by Payam Venegas MD albuterol sulfate 2.5 mg (3 mL) inhalation Q6H PRN 30 days albuterol sulfate 90 mcg/actuation 2 inhalations inhalation Q6H PRN 30 days ascorbate calcium (vitamin C) 500 mg PO DAILY aspirin 81 mg PO DAILY atorvastatin 80 mg PO DAILY qykkeoiubuc-mhynkpznl-sscjtqih 200-62.5-25 mcg (Trelegy Ellipta) 1 inh inhalation DAILY 90 days lactobacillus combination no.8 (Adult Probiotic) 3,000 mmu cells PO DAILY lisinopril 2.5 mg PO DAILY 90 days metoprolol succinate ER 25 mg PO DAILY 90 days multivitamin 1 tab PO DAILY omega-3 fatty acids (Fish Oil Concentrate) 1,000 mg PO DAILY roflumilast (Daliresp) 250 mcg PO DAILY 30 days HPI Comments Details: Pleasant 78 year old female here for follow-up. She was last seen on March 2020. She presented to [facility] with transient lateral ST elevations in the setting of aspiration pneumonitis. She underwent cardiac catheterization which showed no significant coronary artery disease. Echocardiography was consistent with takotsubo cardiomyopathy which improved on subsequent echocardiogram. She has been on metoprolol and lisinopril. Blood pressure control is good. She bikes and is active at home without any chest discomfort shortness of breath. No functional limitations. Clinically stable on follow up. 04/07/2024: She is here for follow-up. She is doing well. Riding her bike without any symptoms. [facility] Medical History (Updated 12/08/23 @ 12:57 by Ramon Valdovinos MD) Abnormal barium swallow Asthma-COPD overlap syndrome Dyspnea Tubular adenoma of colon (~2009) Ulcerative proctitis Hyperlipidemia Osteoporosis (~2008) Hiatal hernia Asthma Pneumonia Pulmonary nodules Takotsubo cardiomyopathy Surgical History History of endoscopy History of surgery on wrist History of hysterectomy History of colonoscopy Family History Daughter No problems noted. Father No problems noted. Mother No problems noted. Sister In good health Sister In good health Brother In good health Son In good health Daughter In good health Social History Housing: House Alcohol intake: never Patient Tobacco Use Status: Never used Tobacco e-Cigarette/Vaping Use: Never Used Second Hand Smoke Exposure: No service: No Current occupational status: retired Cognitive needs: No Hearing needs: No Vision needs: No Review of Systems Const Denies chills, Denies fatigue, Denies fever(s), Denies frequent falls, Denies weakness, Denies weight gain and Denies weight loss ENT Denies dizziness Card Denies chest pain, Denies leg edema, Denies lightheadedness, Denies palpitations, Denies dyspnea and Denies dyspnea on exertion Resp Denies cough, Denies dyspnea and Denies dyspnea on exertion GI Denies hematochezia Musc Denies abnormal gait, Denies muscle weakness, Denies numbness, Denies radiating pain into limb and Denies tingling Neuro Denies abnormal gait, Denies dizziness, Denies frequent falls, Denies numbness, Denies tingling and Denies weakness Endo Denies fatigue and Denies palpitations Physical Exam Vital Signs: Last Vital Signs Pulse 59 04/07/24 10:05 BP 130/62 04/07/24 10:05 BMI result Body Mass Index 31.5 GENERAL APPEARANCE: in no acute distress, pleasant. NECK: no carotid bruit, no jugular venous distention. SKIN: no suspicious lesions, warm and dry. HEART: no murmurs, regular rate and rhythm. LUNGS: clear to auscultation bilaterally. ABDOMEN: soft, nontender. EXTREMITIES: no edema. PERIPHERAL PULSES: equal. NEUROLOGIC: No gross deficits, AAO X 3 Office Procedures EKG Details: Sinus bradycardia 59 beats per minute normal axis, QTC 413 milliseconds. [id number], Complete Assessment & Plan Assessment & Plan (1) HTN (hypertension): Code(s): I10 - Essential (primary) hypertension Category: Medical Qualifiers: Hypertension type: essential hypertension Qualified Code(s): I10 - Essential (primary) hypertension (2) Takotsubo cardiomyopathy: Code(s): I51.81 - Takotsubo syndrome Category: Medical Plan Pleasant 78 year female who is here for follow-up. She has background history of hypertension and episode of takotsubo cardiomyopathy. She is on metoprolol and lisinopril with good blood pressure control. Clinically stable and has no symptoms. ECHO has shown preserved LV function. She has done well for a couple of years. I have advised her to follow-up with us as needed. Thank you for allowing me to participate in the care of your patient. Please feel free to contact me if you have any questions. Coding Level of Care Code Est Pt Level 3 (96756) Diagnoses Essential hypertension I10 Hypertension type: essential hypertension Takotsubo cardiomyopathy I51.81 CPT Codes EKG - CPT: 33252-[id number], Complete ([id number])
== END 2024-04-07 10:30 | disposition home or self-care (01) ==
PROVIDERS: PCP Physician Assistant; Visit Provider Internal Medicine Cardiovascular Disease
DX: I10 Essential (primary) hypertension (principal); I51.81 Takotsubo syndrome
CPT/HCPCS: 93010; 99213

== ENCOUNTER → 2024-04-07 09:55 | Outpatient (BNVA) | payer MEDICARE, SELFPAY | PROVIDERS: PCP Physician Assistant; Visit Provider Internal Medicine Cardiovascular Disease | DX: I10 Essential (primary) hypertension (principal); I51.81 Takotsubo syndrome | CPT/HCPCS: 93005; 99212 ==

== ENCOUNTER 2024-06-02 09:59 | Outpatient (AMB) | payer MEDICARE, SELFPAY ==
[2024-06-02 10:01] VITALS: BP 118/68; PULSE 93; O2SAT 95
--- NOTE | 2024-06-02 10:01 | A.OFFVIS_ITS ---
Vital Signs 06/02/24 10:01 Weight 182 lb 15.739 oz BP 118/68 Blood Pressure Location Rt brachial Position Sitting Pulse 93 Pulse Source Pulse Oximeter Pulse Oximetry (%) 95 Oxygen Delivery Method Room Air Intake Visit Reasons: COPD Allergies No Known Allergies Allergy (Verified 06/02/24 10:05) Medication List - Last Reconciled 06/02/24 by Ade Tony LPN albuterol sulfate 2.5 mg (3 mL) inhalation Q6H PRN 30 days albuterol sulfate 90 mcg/actuation 2 inhalations inhalation Q6H PRN 30 days ascorbate calcium (vitamin C) 500 mg PO DAILY aspirin 81 mg PO DAILY atorvastatin 80 mg PO DAILY xhjjvmfhjht-rpbwvydji-muyhmhqd 200-62.5-25 mcg (Trelegy Ellipta) 1 inh inhalation DAILY 90 days lactobacillus combination no.8 (Adult Probiotic) 3,000 mmu cells PO DAILY lisinopril 2.5 mg PO DAILY 90 days metoprolol succinate ER 25 mg PO DAILY 90 days multivitamin 1 tab PO DAILY omega-3 fatty acids (Fish Oil Concentrate) 1,000 mg PO DAILY roflumilast (Daliresp) 500 mcg PO DAILY 30 days HPI Comments Details: The patient is a 79-year-old woman known asthma COPD overlap syndrome. Initially she was on Advair. She was having symptoms of wheezing and shortness of breath. She was then placed on trilogy. Trilogy was very effective for her improving her respiratory status significantly. However, insurance would not cover. Therefore she was placed on murmur. Anoro does not appear to be as effective for her. She is still requiring short-acting beta agonist. She did have a chest x-ray demonstrating some minimal atelectasis at the bases. The patient will need a repeat x-ray. She did meantime she continues to exercise and staying active. She is using the singular at nighttime which appears to be effective for her. 07/03/2020 the patient is here for pulmonary follow-up visit. Overall she is doing very well from a respiratory status. Has been using her respiratory medications with good effect. Has not required any rescue medication or prednisone over the summer or fall. However, back in August when she was out to eat she aspirated her drink is started developing difficulty breathing. EMS was called and she was brought to the [facility] ED. there she had a CT scan of the chest demonstrating significant mosaic pattern and ground-glass opacities as well as a right lower lobe pneumonia. In addition to that she had multiple pulmonary nodules including a 7 mm nodule. She did rule in for an TN and was transferred to [facility]. 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 On further questioning the patient does have significant dysphagia and heartburn with reflux symptoms. Her CT scan of the chest did demonstrate a moderate hiatal hernia. She will follow-up with her steam and power superintendent. 09/19/2022 the patient is here for a pulmonary follow-up visit. The patient overall is feeling better. During the last several months she did develop a respiratory illness. She did call it in we did send a medications. She did feel better afterwards. Now she is back to her baseline. She continues use the Trelegy inhaler with good effect. Sometime she does it every other day but is still works well for her. She has not required any of her rescue inhaler in the last several weeks. The patient is staying active. She continues to work part- time. She did have a CT scan of the chest done here which was personally by me. I did explain to her that she has underlying pulmonary nodules. Her pulmonary nodules have been stable now for more than 2 years. Therefore it is safe to say that there are benign. Still though will continue to monitor closely symptoms. No further serial CT scans warranted but if any symptoms were to worsen or any new symptoms arise we can we evaluate those nodules. She the CT scan also demonstrates the significant moderate size hiatal hernia. She did have an evaluation by her steam and power superintendent and he was reassuring to her. Therefore she is going to continue with the reflux diet and making sure that she sleeps elevated to minimize any respiratory manifestations. 08/15/2023 the patient is here for sick visit. She has been sick now for few weeks. Initially started like a viral syndrome URI. Positive sick contacts. Now is worsening with worsening cough chest congestion. Moderate severity. Has a hard time sleeping because of the coughing.. She did test negative for COVID. The patient has been using her respiratory medications with no significant improvement. Here in the office she has significant wheezing on exam. She was given 1 treatment with albuterol and her symptoms improved. therefore, will provide her with a nebulizer machine at this time. The patient also will undergo a chest x-ray. 09/11/2023 the patient is here for a pulmonary follow-up visit. The patient is feeling better. She did complete the course of prednisone and also the antibiotics. She still complains of shortness of breath with activity though. [id number] severity. She does continue to use the Trelegy inhaler. Currently on 100. She is still having wheezing on examination. Therefore based on that will go ahead and increase her Trelegy to the 200 mcg dose. This will be helpful. Although she also has a component of chronic bronchitis. She will benefit from additional steroids but steroids have adverse effects. Therefore, due to her frequent exacerbations will start her on Daliresp. Will start her with small dose name steadily increase it to the full dose for the maximum effect. She did have a chest x-ray done still has a large hiatal hernia based on the x-ray. The patient may be symptomatic with will have her get a barium swallow to assess the degree progression. She does have a GI doctor. If we see that there is any irregularity to the mucosa or any changes to the hiatal hernia then she should follow-up for endoscopy. 06/02/2024 the patient is here for a pulmonary follow-up visit. Overall she is doing very well. She is exercising regularly. She is using the Trelegy. We had increase it to 200 mcg during the last visit. She has found this helpful. She also found the Daliresp very helpful. She taking the 500 mcg dose. However, now she had the donut hole in the Trelegy is extremely expensive. Therefore, will switch her to generic Wixela. In addition to that we will go ahead and give her a good Rx card in case that works better for her. She did follow-up with GI regarding the abnormal barium swallow. [place] that it was over read. Currently stable. She does have the hiatal hernia. She is asymptomatic at this time. She will be getting all the vaccines. She is due for her pneumonia shot. She is also going to get the booster for COVID. She already got RSV and flu. Will follow-up in 6-8 months if she has any issues prior to that she will call for an earlier assessment. [facility] Medical History (Updated 06/02/24 @ 18:22 by Ramon Valdovinos MD) Abnormal barium swallow Asthma-COPD overlap syndrome Dyspnea Tubular adenoma of colon (~2009) Ulcerative proctitis Hyperlipidemia Osteoporosis (~2008) Hiatal hernia Asthma Pneumonia Pulmonary nodules Takotsubo cardiomyopathy Surgical History History of endoscopy History of surgery on wrist History of hysterectomy History of colonoscopy Family History Daughter No problems noted. Father No problems noted. Mother No problems noted. Sister In good health Sister In good health Brother In good health Son In good health Daughter In good health Social History Housing: House Alcohol intake: never Patient Tobacco Use Status: Never used Tobacco e-Cigarette/Vaping Use: Never Used Second Hand Smoke Exposure: No service: No Current occupational status: retired Cognitive needs: No Hearing needs: No Vision needs: No Review of Systems Const Reports fatigue, Denies fever(s) and Denies headache(s) Eyes Denies loss of vision ENT Denies vertigo, Denies dizziness, Denies headache(s) and Denies sore throat Card Denies chest pain, Denies leg edema and Denies lightheadedness Resp Denies cough, Denies hemoptysis and Denies wheezing GI Denies abdominal pain, Denies melena, Denies constipation, Denies diarrhea and Denies vomiting Denies urinary frequency, Denies dysuria and Denies urinary urgency Musc Denies arthralgias, Denies joint swelling, Denies numbness and Denies tingling Neuro Denies Abnormal speech present, Denies behavioral changes, Denies vertigo, Denies dizziness, Denies headache(s), Denies loss of vision, Denies memory loss, Denies numbness and Denies tingling Psych Denies anxiety, Denies behavioral changes, Denies depression, Denies memory loss and Denies panic attacks Endo Reports fatigue Dawood/Lymph Denies easy bleeding and Denies easy bruising Aller/Immun Denies wheezing Physical Exam Vital Signs: Last Vital Signs Pulse 93 06/02/24 10:01 BP 118/68 06/02/24 10:01 Pulse Ox 95 06/02/24 10:01 Oxygen Delivery Method Room Air 06/02/24 10:01 Const General: alert Neck Neck: Yes normal visual inspection, Yes full ROM and Yes no lymphadenopathy Chest Chest palpation & inspection: normal inspection of the chest Resp Effort & Inspection: normal respiratory effort and No prolonged expiratory phase Auscultation: clear to auscultation bilaterally, no rhonchi and wheezes Cardio Rate: regular rate Rhythm: regular rhythm Heart sounds: S1 normal heart sound present and S2 normal heart sound present GI Palpation (GI): Soft to palpation and nontender Auscultation: normal bowel sounds Skin General skin exam: rashes and/or lesions noted Neuro Speech: No Abnormal speech present Assessment & Plan Assessment & Plan (1) Asthma-COPD overlap syndrome: Code(s): J44.89 - Other specified chronic obstructive pulmonary disease Category: Medical (2) Asthma: Code(s): J45.909 - Unspecified asthma, uncomplicated Category: Medical Qualifiers: Asthma complication type: uncomplicated Asthma persistence: persistent Asthma severity: moderate Qualified Code(s): J45.40 - Moderate persistent asthma, uncomplicated (3) Pulmonary nodules: Code(s): R91.8 - Other nonspecific abnormal finding of lung field Category: Medical (4) Hiatal hernia: Code(s): K44.9 - Diaphragmatic hernia without obstruction or gangrene Category: Medical Plan stop Trelegy start Wixela continue Daliresp 500 LISA as needed Reflux diet Pulmonary nodules stable for more than 2 years. F/U 6-8 months Medications: New fluticasone propion-salmeterol 250-50 mcg/dose (Wixela Inhub) 1 inh inhalation Q12H 60 ea 11RF 30 days Coding Level of Care Code Est Pt Level 4 (30241) Diagnoses Asthma-COPD overlap syndrome J44.89 Moderate persistent asthma without complication J45.40 Asthma complication type: uncomplicated Asthma persistence: persistent Asthma severity: moderate Pulmonary nodules R91.8 Hiatal hernia K44.9 Time Spent (min) 16
== END 2024-06-02 10:30 | disposition home or self-care (01) ==
LOC: HO.HPS 10:00
PROVIDERS: PCP Physician Assistant; Visit Provider Hospitalist
DX: J44.89 Other specified chronic obstructive pulmonary disease (principal); J45.40 Moderate persistent asthma, uncomplicated; R91.8 Other nonspecific abnormal finding of lung field; K44.9 Diaphragmatic hernia without obstruction or gangrene
CPT/HCPCS: 99214

== ENCOUNTER → 2024-06-02 09:59 | Outpatient (BNVA) | payer MEDICARE, SELFPAY | PROVIDERS: PCP Physician Assistant; Visit Provider Hospitalist | DX: J44.89 Other specified chronic obstructive pulmonary disease (principal); J45.40 Moderate persistent asthma, uncomplicated; R91.8 Other nonspecific abnormal finding of lung field; K44.9 Diaphragmatic hernia without obstruction or gangrene; Z79.899 Other long term (current) drug therapy | CPT/HCPCS: 99212 ==

== ENCOUNTER 2024-11-29 10:03 | Outpatient (AMB) | payer MEDICARE, SELFPAY ==
[2024-11-29 10:05] VITALS: BP 108/64; PULSE 75; O2SAT 95; BMI 28.8
--- NOTE | 2024-11-29 10:05 | A.OFFVIS_ITS ---
Vital Signs 11/29/24 10:05 Height 5 ft 5 in Weight 173 lb 1.006 oz BMI 28.8 BP 108/64 Blood Pressure Location Rt brachial Position Sitting Pulse 75 Pulse Source Pulse Oximeter Pulse Oximetry (%) 95 Oxygen Delivery Method Room Air Intake Visit Reasons: COPD Allergies No Known Allergies Allergy (Verified 11/29/24 10:09) HPI Comments Details: The patient is a 79-year-old woman known asthma COPD overlap syndrome. Initially she was on Advair. She was having symptoms of wheezing and shortness of breath. She was then placed on trilogy. Trilogy was very effective for her improving her respiratory status significantly. However, insurance would not cover. Therefore she was placed on murmur. Anoro does not appear to be as effective for her. She is still requiring short-acting beta agonist. She did have a chest x-ray demonstrating some minimal atelectasis at the bases. The patient will need a repeat x-ray. She did meantime she continues to exercise and staying active. She is using the singular at nighttime which appears to be effective for her. 07/03/2020 the patient is here for pulmonary follow-up visit. Overall she is doing very well from a respiratory status. Has been using her respiratory medications with good effect. Has not required any rescue medication or prednisone over the summer or fall. However, back in August when she was out to eat she aspirated her drink is started developing difficulty breathing. EMS was called and she was brought to the [facility] ED. there she had a CT scan of the chest demonstrating significant mosaic pattern and ground-glass opacities as well as a right lower lobe pneumonia. In addition to that she had multiple pulmonary nodules including a 7 mm nodule. She did rule in for an MT and was transferred to [facility]. 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 On further questioning the patient does have significant dysphagia and heartburn with reflux symptoms. Her CT scan of the chest did demonstrate a moderate hiatal hernia. She will follow-up with her forensic materials engineer. 09/19/2022 the patient is here for a pulmonary follow-up visit. The patient overall is feeling better. During the last several months she did develop a respiratory illness. She did call it in we did send a medications. She did feel better afterwards. Now she is back to her baseline. She continues use the Trelegy inhaler with good effect. Sometime she does it every other day but is still works well for her. She has not required any of her rescue inhaler in the last several weeks. The patient is staying active. She continues to work part- time. She did have a CT scan of the chest done here which was personally by me. I did explain to her that she has underlying pulmonary nodules. Her pulmonary nodules have been stable now for more than 2 years. Therefore it is safe to say that there are benign. Still though will continue to monitor closely symptoms. No further serial CT scans warranted but if any symptoms were to worsen or any new symptoms arise we can we evaluate those nodules. She the CT scan also demonstrates the significant moderate size hiatal hernia. She did have an evaluation by her forensic materials engineer and he was reassuring to her. Therefore she is going to continue with the reflux diet and making sure that she sleeps elevated to minimize any respiratory manifestations. 08/15/2023 the patient is here for sick visit. She has been sick now for few weeks. Initially started like a viral syndrome URI. Positive sick contacts. Now is worsening with worsening cough chest congestion. Moderate severity. Has a hard time sleeping because of the coughing.. She did test negative for COVID. The patient has been using her respiratory medications with no significant improvement. Here in the office she has significant wheezing on exam. She was given 1 treatment with albuterol and her symptoms improved. therefore, will provide her with a nebulizer machine at this time. The patient also will undergo a chest x-ray. 09/11/2023 the patient is here for a pulmonary follow-up visit. The patient is feeling better. She did complete the course of prednisone and also the antibiotics. She still complains of shortness of breath with activity though. [id number] severity. She does continue to use the Trelegy inhaler. Currently on 100. She is still having wheezing on examination. Therefore based on that will go ahead and increase her Trelegy to the 200 mcg dose. This will be helpful. Although she also has a component of chronic bronchitis. She will benefit from additional steroids but steroids have adverse effects. Therefore, due to her frequent exacerbations will start her on Daliresp. Will start her with small dose name steadily increase it to the full dose for the maximum effect. She did have a chest x-ray done still has a large hiatal hernia based on the x-ray. The patient may be symptomatic with will have her get a barium swallow to assess the degree progression. She does have a GI doctor. If we see that there is any irregularity to the mucosa or any changes to the hiatal hernia then she should follow-up for endoscopy. 06/02/2024 the patient is here for a pulmonary follow-up visit. Overall she is doing very well. She is exercising regularly. She is using the Trelegy. We had increase it to 200 mcg during the last visit. She has found this helpful. She also found the Daliresp very helpful. She taking the 500 mcg dose. However, now she had the donut hole in the Trelegy is extremely expensive. Therefore, will switch her to generic Wixela. In addition to that we will go ahead and give her a good Rx card in case that works better for her. She did follow-up with GI regarding the abnormal barium swallow. [place] that it was over read. Currently stable. She does have the hiatal hernia. She is asymptomatic at this time. She will be getting all the vaccines. She is due for her pneumonia shot. She is also going to get the booster for COVID. She already got RSV and flu. Will follow-up in 6-8 months if she has any issues prior to that she will call for an earlier assessment. 11/29/2024 the patient is here for a pulmonary follow-up visit. Overall she is doing well. She did much better switching out of Trelegy to Wixela. She has been tolerating a lot better. She denies any chest tightness or pain like she was having before. She is also monitoring closely her reflux disease. She stays active and she continues to work regularly. She is up-to-date with all her vaccines except for her shingles vaccine that she needs to get. The patient also had a pulmonary nodule last seen back in 2022 measuring 5-6 mm in size. At this point will repeat her CT scan to address her pulmonary nodules specially the larger nodule in the right upper lobe. Otherwise the patient can always call for an earlier assessment. [facility] Medical History (Updated 06/02/24 @ 18:22 by Ramon Valdovinos MD) Abnormal barium swallow Asthma-COPD overlap syndrome Dyspnea Tubular adenoma of colon (~2009) Ulcerative proctitis Hyperlipidemia Osteoporosis (~2008) Hiatal hernia Asthma Pneumonia Pulmonary nodules Takotsubo cardiomyopathy Surgical History History of endoscopy History of surgery on wrist History of hysterectomy History of colonoscopy Family History Daughter No problems noted. Father No problems noted. Mother No problems noted. Sister In good health Sister In good health Brother In good health Son In good health Daughter In good health Social History Housing: House Alcohol intake: never Patient Tobacco Use Status: Never used Tobacco e-Cigarette/Vaping Use: Never Used Second Hand Smoke Exposure: No service: No Current occupational status: retired Cognitive needs: No Hearing needs: No Vision needs: No Review of Systems Const Denies fever(s) and Denies headache(s) Eyes Denies loss of vision ENT Denies vertigo, Denies dizziness, Denies headache(s) and Denies sore throat Card Denies chest pain, Denies leg edema and Denies lightheadedness Resp Denies cough, Denies hemoptysis and Denies wheezing GI Denies abdominal pain, Denies melena, Denies constipation, Denies diarrhea and Denies vomiting Denies urinary frequency, Denies dysuria and Denies urinary urgency Musc Denies arthralgias, Denies joint swelling, Denies numbness and Denies tingling Neuro Denies Abnormal speech present, Denies behavioral changes, Denies vertigo, Denies dizziness, Denies headache(s), Denies loss of vision, Denies memory loss, Denies numbness and Denies tingling Psych Denies anxiety, Denies behavioral changes, Denies depression, Denies memory loss and Denies panic attacks Dawood/Lymph Denies easy bleeding and Denies easy bruising Aller/Immun Denies wheezing Physical Exam Vital Signs: Last Vital Signs Pulse 75 11/29/24 10:05 BP 108/64 11/29/24 10:05 Pulse Ox 95 11/29/24 10:05 Oxygen Delivery Method Room Air 11/29/24 10:05 BMI result Body Mass Index 28.8 Const General: alert Neck Neck: Yes normal visual inspection, Yes full ROM and Yes no lymphadenopathy Chest Chest palpation & inspection: normal inspection of the chest Resp Effort & Inspection: normal respiratory effort and No prolonged expiratory phase Auscultation: clear to auscultation bilaterally, no rhonchi and no wheezes Cardio Rate: regular rate Rhythm: regular rhythm Heart sounds: S1 normal heart sound present and S2 normal heart sound present GI Palpation (GI): Soft to palpation and nontender Auscultation: normal bowel sounds Skin General skin exam: rashes and/or lesions noted Neuro Speech: No Abnormal speech present Assessment & Plan Assessment & Plan (1) Asthma-COPD overlap syndrome: Code(s): J44.89 - Other specified chronic obstructive pulmonary disease Category: Medical (2) Asthma: Code(s): J45.909 - Unspecified asthma, uncomplicated Category: Medical Qualifiers: Asthma complication type: uncomplicated Asthma persistence: persistent Asthma severity: moderate Qualified Code(s): J45.40 - Moderate persistent asthma, uncomplicated (3) Pulmonary nodules: Code(s): R91.8 - Other nonspecific abnormal finding of lung field Category: Medical (4) Hiatal hernia: Code(s): K44.9 - Diaphragmatic hernia without obstruction or gangrene Category: Medical Plan continue Wixela continue Daliresp 500 LISA as needed Reflux diet CT chest to reassess pulmonary nodules F/U 12 months Orders: Orders CT chest wo IV con Today R91.8 - Other nonspecific abnormal finding of lung field Coding Level of Care Code Est Pt Level 4 (21349) Complex EM visit Add On G2211 Diagnoses Asthma-COPD overlap syndrome J44.89 Moderate persistent asthma without complication J45.40 Asthma complication type: uncomplicated Asthma persistence: persistent Asthma severity: moderate Pulmonary nodules R91.8 Hiatal hernia K44.9 Time Spent (min) 17
== END 2024-11-29 10:49 | disposition home or self-care (01) ==
LOC: HO.HPS 10:03
PROVIDERS: PCP Physician Assistant; Visit Provider Hospitalist
DX: J44.89 Other specified chronic obstructive pulmonary disease (principal); J45.40 Moderate persistent asthma, uncomplicated; R91.8 Other nonspecific abnormal finding of lung field; K44.9 Diaphragmatic hernia without obstruction or gangrene
CPT/HCPCS: 99214; G2211

== ENCOUNTER → 2024-11-29 10:03 | Outpatient (BNVA) | payer MEDICARE, SELFPAY | PROVIDERS: PCP Physician Assistant; Visit Provider Hospitalist | DX: J44.89 Other specified chronic obstructive pulmonary disease (principal); J45.40 Moderate persistent asthma, uncomplicated; R91.1 Solitary pulmonary nodule; R91.8 Other nonspecific abnormal finding of lung field; K44.9 Diaphragmatic hernia without obstruction or gangrene | CPT/HCPCS: 99212 ==

== ENCOUNTER 2024-12-30 16:18 | Outpatient (REF) | payer MEDICARE, SELFPAY ==
--- NOTE | ~2024-12-30 | CT_ITS ---
CLINICAL HISTORY: R91.8 - Other nonspecific abnormal finding of lung field CT chest without contrast Comparison: None Findings: The heart is normal size. There is a left lobe thyroid lesion partially obscured. This is better evaluated sonographically. There is a large hiatal hernia with portions of the stomach extending through the hernia sac. There is coronary arterial calcification. The visualized thyroid and mediastinum are otherwise unremarkable. There is right middle and bilateral lower lobe consolidation, possible subsegmental atelectasis, scarring, or pneumonia. There is a solid left lower lobe 4.1 x 2.6 cm mass. The visualized upper abdomen is unremarkable. The bones are intact. IMPRESSION: 1. Left lower lobe pulmonary mass. Clinically appropriate follow-up possibly beginning with PET-CT, recommended unless prior studies become available showing stability of the finding. 2. Right middle and bilateral lower lobe consolidation, differential considerations noted. 3. Hiatal hernia. 4. Left lobe thyroid lesion. Consider sonography to further characterize. This document has been electronically signed by: Sebastian Onofre MD on 01/01/2025 09:44:41
== END 2024-12-30 16:19 | disposition home or self-care (01) ==
LOC: HO.CT 16:18
PROVIDERS: PCP Physician Assistant; Visit Provider Hospitalist
DX: R91.8 Other nonspecific abnormal finding of lung field (principal)
CPT/HCPCS: 71250

== ENCOUNTER → 2024-12-30 16:20 | Outpatient (BNV) | payer MEDICARE, SELFPAY | PROVIDERS: PCP Physician Assistant; Visit Provider Specialist | DX: R91.8 Other nonspecific abnormal finding of lung field (principal) | CPT/HCPCS: 71250 ==

== ENCOUNTER 2025-01-11 07:46 | Outpatient (REF) | payer MEDICARE, SELFPAY ==
--- NOTE | ~2025-01-11 | PE_ITS ---
EXAMINATION: FLUORINE-18 FDG PET/CT SCAN CLINICAL INFORMATION: Left lower lung mass. TECHNIQUE: 56 minutes following the intravenous administration of 17.4 mCi of fluorine 18 FDG, images from the skull base to proximal thigh were obtained using a combined PET/CT scanner with CT scan based attenuation correction. No oral or intravenous contrast was administered. Transverse, coronal, sagittal, and volume reconstruction projections were obtained. The patient's blood glucose as determined by a finger stick, was 103 mg/dL immediately prior to injection. The radiotracer was injected intravenously through left antecubital vein, without any complications. Total CT exam dose-length product 721 mGy-cm. * These CT images were obtained using dose optimization techniques as appropriate, variously including the following: Automated exposure control * Adjustment of mA and/or kV according to patient size (this includes techniques or standardized protocols for targeted exams where dose is matched to indication/reason for exam; i.e. extremities or head) * Use of iterative reconstruction technique COMPARISON: CT chest 12/30/2024. FINDINGS: SUV MAX REFERENCE: Blood: 2.64; gm/ml. Liver: 2.73; gm//ml. HEAD AND NECK: No abnormal radiotracer uptake seen. There is no acute infarct or bleed or mass effect seen on the visualized images. There is complete opacification of bilateral maxillary and mild opacification of ethmoid sinuses. There is dental mild modified throughout the oral cavity. CHEST: Ports and Devices: None Lungs: There is mild heterogeneous isotope activity in bilateral lower lobe consolidation/scarring. The maximum SUV 2.46 g/mL. Pleura: No significant pleural effusion. Lymph Nodes: No tracer-avid mediastinal, hilar or internal mammary or axillary lymphadenopathy. Mediastinum: There is no significant pericardial effusion/thickening. Breasts/Chest Wall: No abnormal radiotracer uptake. ABDOMEN/PELVIS: Liver/Biliary System: No focal tracer-avid liver lesion. The gallbladder appears unremarkable. Pancreas: Normal.No pancreatic ductal dilatation. Spleen: No abnormal radiotracer uptake. No evidence of splenomegaly. Adrenal Glands: No abnormal radiotracer uptake. Kidneys: No hydronephrosis, hydroureter or renal calculi bilaterally. Bowel: There is no significant bowel dilatation to suggest obstruction. There is a moderate size hiatal hernia with thickened hiatal wall. Lymph Nodes: No tracer avid retroperitoneal, mesenteric or pelvic and/or groin lymphadenopathy. Pelvic Organs: The urinary bladder is underdistended. MUSCULOSKELETAL: Mild activity in the left shoulder joint likely DJD. Nonspecific mild activity along the bilateral forearms, nonspecific. Focal activity along the left gluteus sofía muscle likely related to intramuscular injection. Correlate with clinical exam. VASCULAR: Unremarkable THE SITE(S) OF MOST INTENSE FDG AVIDITY AND SUV MAX: Cerebellar hemispheres 9.8 gm/ml g/mL PET/PET CT fusion skull to thigh IMPRESSION: Bilateral lower lobe consolidative mass like structures with SUV measurement of 2.46 g/ml left lower lobe and 1.1 g/ml in the right lower lobe. Moderate size hiatal hernia with mild wall thickening. Electronically signed by: Geovani Goode MD 01/11/2025 01:09 PM EDT
--- OUTSIDE RECORDS SUMMARY | 2025-01-11 07:48 | XMS_ITS | Patient Health Record ---
Author Organization [facility] Address [address] [place] [id number] Care Team Providers Care [employer] Name Role Phone Deangelo Alonso Primary Care Provider Unavailab Naeem Geller Jr Unavailable [phone] Allergies Allergen (clinical drug ingredient) Drug/Non Drug Allergy documented on EMR Reaction Allergy Type Onset Date Status Enviromental allergi es (uncoded) Unknown Allergy Active Reason For Referral No Information Medications Medication SIG (Take, Route, Frequency, Duration) Notes Start Date End Date Status Atorvastatin Calcium 80 MG Orally Active Trelegy Ellipta Acti ve Metoprolol Succinate ER 25 MG Orally Active Lisinopril 2.5 MG Orally Ac tive Alendronate Sodium 70 MG Orally Active Vitamin D Active Claritin 10 MG 1 tablet Orally as needed Active Dicyclomine HCl 20 MG 1 tablet Orally 2- 4 times a day 10/05/2021 Active Aspir-81 Active Advair Diskus PRN Active Multi Vitamin/Minerals Active Fish Oil Active Immunizations Vaccine Route Administration Date Status Comme nts Influenza Unknown 04/12/2020 Administered Influenza Unknown 04/04/2021 Administered Influenza Unknown 06/24/2023 Administered Problems Problem Type SNOMED Code ICD Code Onset Dates Problem Status W/U Status Risk Notes Problem 02540111 Colitis (K52.9) Active confirmed Problem 01515638 Hiatal hernia (K44.9) Active confirmed Problem Benign neoplasm of stomach (20952295) Gastric polyps (K31.7) Active confirmed Problem 170321094 Abnormal UGI series (R93.3) Active confirmed Problem 71649469 Ulcerative proctitis without complication (K51.20) Active confirmed Problem 545344038 Adenomatous poly p of colon, unspecified part of colon (D12.6) Active confirmed Vital Signs Temperature 97.5 degrees Fahrenheit 01/28/2024 Blood pressure diastolic 00 mm Hg 01/28/2024 Height 64.5 in 01/28/2024 Blood pressure systolic 000 mm Hg 01/28/2024 Weight 182 lb 6 oz lbs 01/28/2024 BMI 30.82 kg/m2 01/28/2024 Encounters Encounter Location Date Provider Diagnosis [facility] [address] [place] [address] 01/28/2024 Naeem Lopez Jr Hiatal hernia K44.9 ; Colitis K52.9 and Abnormal UGI series R93.3 Assessments Encounter Date Diagnosis (ICD Code) Assessment Notes Treatment Notes Treatment Clinical Notes Section Notes 01/28/2024 Colitis (ICD-10 - K52.9) See assessment a nd recommendations below. 01/28/2024 Hiatal hernia (ICD-10 - K44.9) At this time, she is doing well. There are no colitis symptoms and no significant findings on her last colonoscopy. We reviewed this today. Her abnormal upper GI series was reviewed in detail. In my experience the provider performing this procedure who is not radiologist, tends to describe multiple findings of doubtful clinical significance. Based on her lack of symptoms, her recent endoscopy reviewed above, and my review of her upper GI series, I'm not recommending endoscopy at this time. Followup will be in one year. She will continue dicyclomine as she is doing. See assessment and recommendations below. 01/28/2024 Abnormal UGI series (ICD-10 - R93.3) See assessment a nd recommendations below. Plan Of Treatment Pending Test Test Name Order Date XR GI SERIES 08/18/2020 Future Test Test Name Order Date COLONOSCOPY 07/08/2012 COLONOSCOPY 11/07/2016 UPPER GI ENDOSCOPY 01/17/2022 COLONOSCOPY 01/17/2022 Insurance Providers Payer Name Payer Address Payer Phone Subscriber Number Group Number Insured Name Patient Relationship to Insured Coverage Start Date Coverage End Date [facility] [address] [place], [place] [id number] SILVINO MOTT (Shameka) Self - patient is the insured Medical (General) History Medical History History ICD Code Asthma elevated cholesterol Ulcerative proctitis, diagno sed 07/15, treated with antispasmodics and hydrocortisone suppositories, has not required systemic therapy. Last colonoscopy 06/25, tubular adenoma x2, no endoscopic pathologic evidence of colitis hyperlipidemia hypertension Gastroesophageal reflux dise ase/hiatal hernia, EGD 06/25, fundic gland polyps, no BE or HP, 7 cm hiatal hernia Surgical History Surgery Date(Month/Year) hysterectomy wrist surgery
== END 2025-01-11 07:47 | disposition home or self-care (01) ==
LOC: HO.PET 07:46
PROVIDERS: Visit Provider Hospitalist
DX: Z13.89 Encounter for screening for other disorder (principal)

== ENCOUNTER 2025-04-06 15:33 | Outpatient (REF) | payer MEDICARE, SELFPAY ==
--- OUTSIDE RECORDS SUMMARY | 2025-03-14 05:20 | XMS_ITS ---
Author Organization [facility] Address [address] [place] [address] Care Team Providers Care Therapy Manager Name Role Phone Deangelo Alonso Primary Care Provider Unavailab Naeem Geller Jr Unavailable [phone] Allergies Allergen (clinical drug ingredient) Drug/Non Drug Allergy documented on EMR Reaction Allergy Type Onset Date Status Enviromental allergi es (uncoded) Unknown Allergy Active REASON FOR VISIT Patient presents today for colitis Medications Medication SIG (Take, Route, Frequency, Duration) Notes Start Date End Date Status Multi Vitamin/Minerals Active Advair Diskus PRN Active Atorvastatin Calcium 80 MG Orally Active Fish Oil Active Aspir-81 Active Dicyclomine HCl 20 MG 1 tablet Orally 2- 4 times a day for 90 days 10/05/2021 Active Vitamin D Active Alendronate Sodium 70 MG Orally Not-Taking Trelegy Ellipta Not- Taking Claritin 10 MG 1 tablet Orally as needed Active Lisinopril 2.5 MG Orally Ac tive Metoprolol Succinate ER 25 MG Orally Active Social History AUDIT-C (Standard) Question Answer Notes Did you have a drink containing alcohol in the p ast year? No Points 0 Interpretation Negative Vital Signs Blood pressure systolic 001 mm Hg 03/14/20 25 Blood pressure diastolic 01 mm Hg 025 Heart Rate 80 /min 03/14/2025 Height 64.5 in 03/14/2025 Weight 162.2 lbs 03/14/2025 BMI 27.41 kg/m2 03/14/2025 Weight is down approximately 20 pounds from last visit Encounters Encounter Location Date Provider Diagnosis [facility] [address] [place] [address] 03/14/2025 Naeem Lopez Jr Ulcerative proctitis without complication K51.20 ; Adenomatous polyp of colon, unspecified part of colon D12.6 and Hiatal hernia K44.9 Assessments Encounter Date Diagnosis (ICD Code) Assessment Notes Treatment Notes Treatment Clinical Notes Section Notes 03/14/2025 Ulcerative proctitis without complication (ICD-10 - K51.20) 03/14/2025 Adenomatous polyp of colon, unspecified part of colon (ICD-10 - D12.6) 03/14/2025 Hiatal hernia (ICD-10 - K44.9) Plan Of Treatment Medication Medication Name Sig Start Date Stop Date Notes Dicyclomine HCl 20 MG 1 tablet Orally 2- 4 times a day for 90 days 10/05/2021 Next Appt Details Provider Name:Naeem allred Jr, 03/20/2026 09:00:00 AM, [address] [facility] [address], [address], [place], [address], Progress Notes * SILVINO MINOR (Shameka) LD OB:1945 (79 yo F)Acc No.[id number]:03/14/2025 Progress Notes Patient: Lev SILVINO HAINES (Kellyy) L Provider: Lev Lopez MD :1945 A ge:79 Y S ex:Female Date:03/14/2025 Address:[address] [place] [address] Pcp:Deangelo Alonso Subjective: * Chief Complaints: * 1 . Patient presents today for colitis. 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 Last colonoscopy 06/25, tubular adenoma x2, no endoscopic pathologic evidence of colitis, Hyperlipidemia, Hypertension, Gastroesophageal reflux disease/hiatal hernia, EGD 06/25, fundic gland polyps, no BE or HP, 7 cm hiatal hernia. * Surgical History: h ysterectomy , wrist surgery . * Hospitalization/Major Diagno stic Procedure: D enies Past Hospitalization. * Family History: F ather: , diagnosed with HTN (hypertension), Heart disease, Diabetes. M other: . No Family hx of colon cancer, colon polyps or liver ds. * Social History: T obacco Use: T obacco Use/Smoking A re you a: nonsmoker. D rugs/Alcohol: A lcohol Screen P oints: 0, Interpretation: Negative. M iscellaneous: M arital status: single. Occupation: [employer] at [employer] [place]- retired 2014. D rug/Alcohol: A HANNAH-C (Standard) D id you have a drink containing alcohol in the past year? N o,?Points 0 , I nterpretation N egative. * Medications: T aking Claritin 10 MG Tablet 1 tablet Orally as needed , Taking Aspir-81 , Taking Advair Diskus , Notes to Pharmacist: PRN, Taking Multi Vitamin/Minerals , Taking Fish Oil , Taking Atorvastatin Calcium 80 MG Tablet Orally , Taking Metoprolol Succinate ER 25 MG Tablet Extended Release 24 Hour Orally , Taking Lisinopril 2.5 MG Tablet Orally , Taking Vitamin D , Taking Dicyclomine HCl 20 MG Tablet 1 tablet Orally 2-4 times a day , Not-Taking/PRN Trelegy Ellipta , Not-Taking/PRN Alendronate Sodium 70 MG Tablet Orally , Medication List reviewed and reconciled with the patient * Allergies: E nviromental allergies. Objective: * Vitals: W t:162.2lbs, Ht: 64.5 in, BMI: 27.41 Index, BP:001/01mm Hg, HR:80/min, Wt-k.57. Weight is down approximately 20 pounds from last visit. Assessment: * Assessment: 1. U lcerative proctitis without complication - K51.20 (Primary) 2 . A denomatous polyp of colon, unspecified part of colon - D12.6 3 . H iatal hernia - K44.9 Plan: * Treatment: * Preventive Medicine: Counseling: C are goal follow-up plan: A amelie Normal BMI Follow-up G iving encouragement to exercise, B IN management provided Y es. Urinary Incontinence: U rinary Incontinence A ssessment: A bsent, P alex of care documented: N o, reason not specified. Screenings: F all Risk Screening F all Risk Assessment: N o falls in the past year, S creening: N o falls in the past year, A ssessment: P erformed, P alex of Care: N ot documented, no reason specified. * * The named appointment provid er may or may not be the originator of this progress note, and it is not deemed complete until electronically signed by the appointment provider. Sign off status: Pending * Provider: Lev Lopez MD Date: 0 03/14/2025 Generated for Lashawn ortega/Elvia/Crisitting on: 0 04/06/2025 05:32 PM EDT
--- OUTSIDE RECORDS SUMMARY | 2025-04-06 17:33 | XMS_ITS | Patient Health Record ---
Author Organization [facility] Address [address] [place] [address] Care Team Providers Care Environmental Health Physician Name Role Phone Deangelo Alonso Primary Care Provider Unavailab Naeem Geller Jr Unavailable Allergies Allergen (clinical drug ingredient) Drug/Non Drug Allergy documented on EMR Reaction Allergy Type Onset Date Status Enviromental allergi es (uncoded) Unknown Allergy Active Reason For Referral No Information Medications Medication SIG (Take, Route, Frequency, Duration) Notes Start Date End Date Status Multi Vitamin/Minerals Active Advair Diskus PRN Active Dicyclomine HCl 20 MG 1 tablet Orally 2- 4 times a day for 90 days 10/05/2021 Active Atorvastatin Calcium 80 MG Orally Active Fish Oil Active Lisinopril 2.5 MG Orally Ac tive Metoprolol Succinate ER 25 MG Orally Active Vitamin D Active Alendronate Sodium 70 MG Orally Not-Taking Trelegy Ellipta Not- Taking Aspir-81 Active Claritin 10 MG 1 tablet Orally as needed Active Immunizations Vaccine Route Administration Date Status Comme nts Influenza Unknown 04/12/2020 Administered Influenza Unknown 04/04/2021 Administered Influenza Unknown 06/24/2023 Administered Social History AUDIT-C (Standard) Question Answer Notes Did you have a drink containing alcohol in the p ast year? No Points 0 Interpretation Negative Problems Problem Type SNOMED Code ICD Code Onset Dates Problem Status W/U Status Risk Notes Problem 45633832 Colitis (K52.9) Active confirmed Problem 48001285 Hiatal hernia (K44.9) Active confirmed Problem Benign neoplasm of stomach (59087194) Gastric polyps (K31.7) Active confirmed Problem 976402345 Abnormal UGI series (R93.3) Active confirmed Problem 30531693 Ulcerative proctitis without complication (K51.20) Active confirmed Problem 864387997 Adenomatous poly p of colon, unspecified part of colon (D12.6) Active confirmed Vital Signs Heart Rate 80 /min 03/14/2025 Weight is down approximately 20 pounds from last visit Blood pressure diastolic 01 mm Hg 03/14/2025 Remberto ght is down approximately 20 pounds from last visit Height 64.5 in 03/14/2025 Weight is down approximately 20 pounds from last visit Blood pressure systolic 001 mm Hg 03/14/2025 Weig ht is down approximately 20 pounds from last visit Weight 162.2 lbs 03/14/2025 Weight is down approximately 20 pounds from last visit BMI 27.41 kg/m2 03/14/2025 Weight is down approximately 20 pounds from last visit Encounters Encounter Location Date Provider Diagnosis [facility] [address] [place] [address] 03/14/2025 Naeem Lopez Jr Ulcerative proctitis without [...] hernia (ICD-10 - K44.9) Plan Of Treatment Pending Test Test Name Order Date XR GI SERIES 08/18/2020 Future Test Test Name Order Date COLONOSCOPY 07/08/2012 COLONOSCOPY 11/07/2016 UPPER GI ENDOSCOPY 01/17/2022 COLONOSCOPY 01/17/2022 Next Appt Details Provider Name:Naeem allred Jr, 03/20/2026 09:00:00 AM, [address], [address], [place], [address], Insurance Providers Payer Name Payer Address Payer Phone Subscriber Number Group Number Insured Name Patient Relationship to Insured Coverage Start Date Coverage End Date [facility] [address] [place], [place] [id number] SILVINO MOTT (Candy) Self - patient is the insured Medical [...] cm hiatal hernia Surgical History Surgery Date(Month/Year) wrist surgery hysterectomy
== END 2025-04-06 15:34 | disposition home or self-care (01) ==
LOC: HO.CT 15:33
PROVIDERS: PCP Physician Assistant; Visit Provider Hospitalist
DX: Z13.89 Encounter for screening for other disorder (principal)

== ENCOUNTER 2025-04-11 08:54 | Outpatient (REF) | payer MEDICARE, SELFPAY ==
--- NOTE | ~2025-04-11 | MM_ITS ---
EXAMINATION: MM SCREENING DIGITAL BREAST TOMOSYNTHESIS, BILATERAL CLINICAL INFORMATION: Screening. Asymptomatic. COMPARISON: Mammography: Comparison is made with available priors TECHNIQUE: Digital breast mammography with tomosynthesis is performed in both the craniocaudal and mediolateral oblique views along with computer-aided detection (CAD). FINDINGS: There are scattered areas of fibroglandular density (ACR BI-RADS breast composition Category b). Left: Focal asymmetry retroareolar region anterior depth. No suspicious calcifications or other abnormal findings. Right: There are no significant masses, abnormal calcifications, or other abnormalities. MM/MM tomosynthesis screening BI IMPRESSION: Additional imaging is recommended ASSESSMENT: BI-RADS BI-RADS 0 - Incomplete: Needs additional Imaging. RECOMMENDATION: 1. Additional views of the left breast. 2. Targeted ultrasound if warranted after review of the additional views. 3. Radiology department staff will contact the patient for additional imaging. Additional Imaging required This examination should not preclude the clinical evaluation of a suspicious palpable abnormality. This patient's information was entered into a reminder system with a target due date for their next mammogram. Electronically signed by: Chloe Shea DO 04/12/2025 02:37 PM EDT
--- OUTSIDE RECORDS SUMMARY | 2025-04-11 10:01 | XMS_ITS | Patient Health Record ---
Author Organization [facility] Address [address] [place] [address] Care Team Providers Care Habilitation Worker Name Role Phone Deangelo Alonso Primary Care [...] Problem Status W/U Status Risk Notes Problem 96773035 Colitis (K52.9) Active confirmed Problem 49049020 Hiatal hernia (K44.9) Active confirmed Problem Benign neoplasm of stomach (46591276) Gastric polyps (K31.7) Active confirmed Problem 835768642 Abnormal UGI series (R93.3) Active confirmed Problem 47444233 Ulcerative proctitis without complication (K51.20) Active confirmed Problem 625820561 Adenomatous poly p of colon, unspecified part [...] visit Encounters Encounter Location Date Provider Diagnosis [facility] [address] [place] [address] 03/14/2025 Naeem Lopez Jr Ulcerative proctitis without complication K51.20 ; Adenomatous polyp of colon, unspecified part of colon D12.6 and Hiatal hernia K44.9 Assessments Encounter Date Diagnosis (ICD Code) Assessment Notes Treatment Notes Treatment Clinical Notes Section Notes 03/14/2025 Ulcerative proctitis without complication (ICD-10 - K51.20) Currently, she is doing well. She will continue dicyclomine for crampy abdominal symptoms. This is refilled. Based on her most recent colonoscopy, she does not need any specific treatment for her ulcerative proctitis, and we will see her in follow-up in 1 year. 03/14/2025 Adenomatous polyp of colon, unspecified part of colon (ICD-10 - D12.6) Currently, she is doing well. She will continue dicyclomine for crampy abdominal symptoms. This is refilled. Based on her most recent colonoscopy, she does not need any specific treatment for her ulcerative proctitis, and we will see her in follow-up in 1 year. 03/14/2025 Hiatal hernia (ICD-10 - K44.9) Currently, she is doing well. She will continue dicyclomine for crampy abdominal symptoms. This is refilled. Based on her most recent colonoscopy, she does not need any specific treatment for her ulcerative proctitis, and we will see her in follow-up in 1 year. Plan Of Treatment Pending Test Test Name Order Date XR GI SERIES 08/18/2020 Future Test Test Name Order Date COLONOSCOPY 07/08/2012 COLONOSCOPY 11/07/2016 UPPER GI ENDOSCOPY 01/17/2022 COLONOSCOPY 01/17/2022 Next Appt Details Provider Name:Naeem Lim Terence allred Jr, 03/20/2026 09:00:00 AM, [address] [place] [address], [address], [place], [address], Insurance Providers Payer Name Payer Address Payer Phone Subscriber Number Group Number Insured Name Patient Relationship to Insured Coverage Start Date Coverage End Date [facility] [address] [place], [place] [id number] [phone] [id number] SILVINO MOTT (Shameka) Self - patient is [...]
== END 2025-04-11 08:55 | disposition home or self-care (01) ==
LOC: HO.MAMMO 08:54
PROVIDERS: PCP Physician Assistant; Visit Provider Physician Assistant
DX: Z12.31 Encounter for screening mammogram for malignant neoplasm of breast (principal)
CPT/HCPCS: 77063; 77067

== ENCOUNTER → 2025-04-11 09:15 | Outpatient (BNV) | payer MEDICARE, SELFPAY | PROVIDERS: PCP Physician Assistant; Visit Provider Internal Medicine | DX: Z12.31 Encounter for screening mammogram for malignant neoplasm of breast (principal) | CPT/HCPCS: 77063; 77067 ==

== ENCOUNTER 2025-04-13 16:14 | Outpatient (REF) | payer MEDICARE, SELFPAY ==
--- NOTE | ~2025-04-13 | CT_ITS ---
EXAMINATION: CT CHEST WITHOUT CONTRAST CLINICAL INFORMATION: R91.8 - Other nonspecific abnormal finding of lung field COMPARISON: December 30, 2024 CT and PET/CT on January 11, 2025 DLP: 136 mGY*cm TECHNIQUE: Multidetector volumetric CT imaging of the chest was done. Axial MIP volume rendering provided. Sagittal and coronal reformatted images were obtained. This CT examination was performed using dose optimization techniques as appropriate, variously including the following: *Automated exposure control *Adjustment of mA and/or kV according to patient size (this includes techniques or standardized protocols for targeted exams where dose is matched to indication/reason for exam; i.e. extremities or head) *Use of iterative reconstruction technique FINDINGS: LUNGS: Again seen is a focal opacity in the posterior basal left lower lobe measuring 2.1 x 4.5 cm, previously 2.6 x 5.7 cm. There are also linear bands and peribronchial thickening extending up from the aforementioned. Peribronchial thickening and focal opacity in the posterior lateral right lower lobe appears similar to the prior. There are no new nodules. MEDIASTINUM: Shotty mediastinal nodes appear similar to the prior. Again noted is heterogeneous appearance of thyroid gland. Large sliding hiatal hernia is stable. CORONARY ARTERY CALCIFICATION: Present PLEURA: Bandlike thickening is noted along the minor fissure, and minimal extending up along the major fissure, appears decreased since the prior. AXILLA: No lymphadenopathy. UPPER ABDOMEN: Unremarkable. OSSEOUS STRUCTURES: There is a partially imaged lesion within the left humeral neck with ring like calcification consistent with a low-grade chondroid lesion. It is only partially covered by the images and was visible on the prior. CT/CT chest wo IV con IMPRESSION: Decrease in size of masslike density in the posterior basal left lower lobe. Stable changes in the right lower lobe and mildly improved pleural thickening along right minor fissure minimal extending up into the major fissure . Incompletely imaged low-grade chondroid lesion in the left humeral neck. Stable sliding large hiatal hernia. Fleischner guidelines were followed. Electronically signed by: Brian Smith MD 04/13/2025 06:10 PM EDT
--- OUTSIDE RECORDS SUMMARY | 2025-04-13 18:38 | XMS_ITS | Patient Health Record ---
Author Organization [facility] Address [address] [place] [address] Care Team Providers Care Psychologist Educational Name Role Phone Deangelo Alonso Primary Care [...] Problem Status W/U Status Risk Notes Problem 82439991 Colitis (K52.9) Active confirmed Problem 15995962 Hiatal hernia (K44.9) Active confirmed Problem Benign neoplasm of stomach (55298284) Gastric polyps (K31.7) Active confirmed Problem 161431124 Abnormal UGI series (R93.3) Active confirmed Problem 39157203 Ulcerative proctitis without complication (K51.20) Active confirmed Problem 870786792 Adenomatous poly p of colon, unspecified part [...] visit Encounters Encounter Location Date Provider Diagnosis [facility] [address] [place] [address] 03/14/2025 Naeem Lopez Jr Ulcerative proctitis without [...] Lim Terence allred Jr, 03/20/2026 09:00:00 AM, [address] [place] [address], [address], [place], [address], Insurance Providers Payer Name Payer Address Payer Phone Subscriber Number Group Number Insured Name Patient Relationship to Insured Coverage Start Date Coverage End Date [facility] [address] [place], [place] [id number] SILVINO MOTT (Shameka) Self - patient is [...]
== END 2025-04-13 16:15 | disposition home or self-care (01) ==
LOC: HO.CT 16:14
PROVIDERS: PCP Physician Assistant; Visit Provider Hospitalist
DX: R91.8 Other nonspecific abnormal finding of lung field (principal)
CPT/HCPCS: 71250

== ENCOUNTER → 2025-04-13 16:16 | Outpatient (BNV) | payer MEDICARE, SELFPAY | PROVIDERS: PCP Physician Assistant; Visit Provider Radiology Diagnostic Radiology | DX: R91.8 Other nonspecific abnormal finding of lung field (principal) | CPT/HCPCS: 71250 ==

== ENCOUNTER 2025-04-20 08:46 | Outpatient (REF) | payer MEDICARE, SELFPAY ==
--- NOTE | ~2025-04-20 | US_ITS ---
EXAMINATION: MM DIAGNOSTIC DIGITAL BREAST TOMOSYNTHESIS, LEFT Limited left breast ultrasound. CLINICAL INFORMATION: Call back from from screening for focal asymmetry in the retroareolar region of the left breast anterior depth. COMPARISON: Mammography: Priors on PACS. TECHNIQUE: Digital breast tomosynthesis is performed in both the craniocaudal and mediolateral oblique views along with computer-aided detection (CAD). Synthesized 2D images are generated from the tomosynthesis. FINDINGS: There are scattered areas of fibroglandular density (ACR BI-RADS breast composition Category b). Circumscribed oval mass in the retroareolar region anterior depth persists on additional imaging projections and partially effaces. No suspicious calcifications or other abnormal findings. Targeted color Doppler ultrasound scanning in the left retroareolar region demonstrates a simple cyst versus ectatic duct retroareolar region 1:00 measuring 10 x 5 x 4 mm which correlates with the circumscribed oval mass on mammography and is benign. US/US breast LT limited mamm only IMPRESSION: Simple cyst versus ectatic duct in the left retroareolar region correlating with the circumscribed oval mass/focal asymmetry. Benign. ASSESSMENT: BI-RADS BI-RADS 2 - Benign Findings RECOMMENDATION: 1 year F/U Results were provided to the patient at time of visit by the technologist. This patient's information was entered into a reminder system with a target due date for their next mammogram. Electronically signed by: Chloe Shea DO 04/20/2025 12:44 PM EDT
--- OUTSIDE RECORDS SUMMARY | 2025-04-20 10:12 | XMS_ITS | Patient Health Record ---
Author Organization [facility] Address [address] [place] [address] Care Team Providers Care Supervisor [employer] Name Role Phone Deangelo Alonso Primary Care [...] Problem Status W/U Status Risk Notes Problem 27410269 Colitis (K52.9) Active confirmed Problem 84684924 Hiatal hernia (K44.9) Active confirmed Problem Benign neoplasm of stomach (10139422) Gastric polyps (K31.7) Active confirmed Problem 724249002 Abnormal UGI series (R93.3) Active confirmed Problem 98420520 Ulcerative proctitis without complication (K51.20) Active confirmed Problem 616446963 Adenomatous poly p of colon, unspecified part [...] visit Encounters Encounter Location Date Provider Diagnosis [facility] [address] [place] [address] 03/14/2025 Naeem Lopez Jr Ulcerative proctitis without [...] Lim Terence allred Jr, 03/20/2026 09:00:00 AM, [address] [place] [address], [address], [place], [address], Insurance Providers Payer Name Payer Address Payer Phone Subscriber Number Group Number Insured Name Patient Relationship to Insured Coverage Start Date Coverage End Date [facility] [address] [place], [place] [id number] [phone] [id number] SILVINO MOTT (Shameka) Self - patient is [...]
== END 2025-04-20 08:47 | disposition home or self-care (01) ==
LOC: HO.MAMMO 08:46
PROVIDERS: PCP Physician Assistant; Visit Provider Physician Assistant
DX: N64.89 Other specified disorders of breast (principal)
CPT/HCPCS: 76642; 77061; 77065

== ENCOUNTER → 2025-04-20 09:00 | Outpatient (BNV) | payer MEDICARE, SELFPAY | PROVIDERS: PCP Physician Assistant; Visit Provider Internal Medicine | DX: R92.8 Other abnormal and inconclusive findings on diagnostic imaging of breast (principal) | CPT/HCPCS: 76642; 77065; G0279 ==

== ENCOUNTER 2025-04-21 08:52 | Outpatient (REF) | payer MEDICARE, SELFPAY ==
[2025-04-21 09:54] LABS: Hematocrit 40.1 % (37.0-47.0); Hemoglobin 13.2 g/dl (12.0-16.0); Mean Corpuscular HGB Conc 32.9 g/dl (31.0-35.0); Mean Corpuscular Hemoglobin 29.3 pg (27.0-33.0); Mean Corpuscular Volume 88.9 fL (80.0-98.0); NRBC Abs Auto 0.000 X10*3/uL (0.0-0.012); NRBC Pct Auto 0.0 /100WBC (0.0-0.2); Platelet Count 263 X10*3/uL (160-400); Red Blood Count 4.51 X10*6/uL (4.20-5.50); White Blood Count 9.0 X10*3/uL (4.8-10.8)
[2025-04-21 10:39] LABS: Alanine Aminotransferase 24 U/L (0-31); Albumin Level 3.7 g/dL (3.5-5.0); Alkaline Phosphatase 92 U/L (39-117); Anion Gap 7 (12-20); Aspartate Amino Transferase 27 U/L (5-31); Blood Urea Nitrogen 11 mg/dL (9-16); Calcium 9.5 mg/dL (8.4-10.2); Carbon Dioxide 28 mmol/L (22-29); Chloride 108 mmol/L (96-108); Estimated Glomerular Filt Rate > 60; Potassium 4.1 mmol/L (3.3-5.1); Sodium 139 mmol/L (135-145); Total Protein 6.6 g/dL (6.5-8.0)
[2025-04-21 12:09] LABS: Microalbum/Creatinine Ratio Ur 5.6 ug/mg cr (<30)
== END 2025-04-21 08:53 | disposition home or self-care (01) ==
LOC: HO.LAB 08:52
PROVIDERS: Absent Provider Physician Assistant; PCP Physician Assistant; Visit Provider Hospitalist
DX: J44.89 Other specified chronic obstructive pulmonary disease (principal); J45.50 Severe persistent asthma, uncomplicated; I10 Essential (primary) hypertension; K44.9 Diaphragmatic hernia without obstruction or gangrene; R91.8 Other nonspecific abnormal finding of lung field; Z79.51 Long term (current) use of inhaled steroids; Z79.899 Other long term (current) drug therapy
CPT/HCPCS: 36415; 80053; 82043; 82570; 85027; 99212

== ENCOUNTER 2025-04-21 08:52 | Outpatient (AMB) | payer MEDICARE, SELFPAY ==
--- NOTE | 2025-04-21 08:54 | A.OFFVIS_ITS ---
Vital Signs 04/21/25 08:55 Height 5 ft 5 in Weight 162 lb 0.636 oz BMI 27.0 BP 108/58 L Blood Pressure Location Lt brachial Position Sitting Pulse 62 Pulse Source Pulse Oximeter Pulse Oximetry (%) 96 Oxygen Delivery Method Room Air Intake Visit Reasons: CT follow up Fibreglass Laminator Required: No Accompanied by: Self / Same As Patient Allergies No Known Allergies Allergy (Verified 04/21/25 08:58) HPI Comments Details: The patient is a 79-year-old woman known asthma COPD overlap syndrome. Initially she was on Advair. She was having symptoms of wheezing and shortness of breath. She was then placed on trilogy. Trilogy was very effective for her improving her respiratory status significantly. However, insurance would not cover. Therefore she was placed on murmur. Anoro does not appear to be as effective for her. She is still requiring short-acting beta agonist. She did have a chest x-ray demonstrating some minimal atelectasis at the bases. The patient will need a repeat x-ray. She did meantime she continues to exercise and staying active. She is using the singular at nighttime which appears to be effective for her. 07/03/2020 the patient is here for pulmonary follow-up visit. Overall she is doing very well from a respiratory status. Has been using her respiratory medications with good effect. Has not required any rescue medication or prednisone over the summer or fall. However, back in August when she was out to eat she aspirated her drink is started developing difficulty breathing. EMS was called and she was brought to the [facility] ED. there she had a CT scan of the chest demonstrating significant mosaic pattern and ground-glass opacities as well as a right lower lobe pneumonia. In addition to that she had multiple pulmonary nodules including a 7 mm nodule. She did rule in for an [place] and was transferred to [facility]. 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 On further questioning the patient does have significant dysphagia and heartburn with reflux symptoms. Her CT scan of the chest did demonstrate a moderate hiatal hernia. She will follow-up with her shade matcher. 09/19/2022 the patient is here for a pulmonary follow-up visit. The patient overall is feeling better. During the last several months she did develop a respiratory illness. She did call it in we did send a medications. She did feel better afterwards. Now she is back to her baseline. She continues use the Trelegy inhaler with good effect. Sometime she does it every other day but is still works well for her. She has not required any of her rescue inhaler in the last several weeks. The patient is staying active. She continues to work part- time. She did have a CT scan of the chest done here which was personally by me. I did explain to her that she has underlying pulmonary nodules. Her pulmonary nodules have been stable now for more than 2 years. Therefore it is safe to say that there are benign. Still though will continue to monitor closely symptoms. No further serial CT scans warranted but if any symptoms were to worsen or any new symptoms arise we can we evaluate those nodules. She the CT scan also demonstrates the significant moderate size hiatal hernia. She did have an evaluation by her shade matcher and he was reassuring to her. Therefore she is going to continue with the reflux diet and making sure that she sleeps elevated to minimize any respiratory manifestations. 08/15/2023 the patient is here for sick visit. She has been sick now for few weeks. Initially started like a viral syndrome URI. Positive sick contacts. Now is worsening with worsening cough chest congestion. Moderate severity. Has a hard time sleeping because of the coughing.. She did test negative for COVID. The patient has been using her respiratory medications with no significant imp rovement. Here in the office she has significant wheezing on exam. She was given 1 treatment with albuterol and her symptoms improved. therefore, will provide her with a nebulizer machine at this time. The patient also will undergo a chest x-ray. 09/11/2023 the patient is here for a pulmonary follow-up visit. The patient is feeling better. She did complete the course of prednisone and also the antibiotics. She still complains of shortness of breath with activity though. Rimd-im-mirmzpdm severity. She does continue to use the Trelegy inhaler. Currently on 100. She is still having wheezing on examination. Therefore based on that will go ahead and increase her Trelegy to the 200 mcg dose. This will be helpful. Although she also has a component of chronic bronchitis. She will benefit from additional steroids but steroids have adverse effects. Therefore, due to her frequent exacerbations will start her on Daliresp. Will start her with small dose name steadily increase it to the full dose for the maximum effect. She did have a chest x-ray done still has a large hiatal hernia based on the x-ray. The patient may be symptomatic with will have her get a barium swallow to assess the degree progression. She does have a GI doctor. If we see that there is any irregularity to the mucosa or any changes to the hiatal hernia then she should follow-up for endoscopy. 06/02/2024 the patient is here for a pulmonary follow-up visit. Overall she is doing very well. She is exercising regularly. She is using the Trelegy. We had increase it to 200 mcg during the last visit. She has found this helpful. She also found the Daliresp very helpful. She taking the 500 mcg dose. However, now she had the donut hole in the Trelegy is extremely expensive. Therefore, will switch her to generic Wixela. In addition to that we will go ahead and give her a good Rx card in case that works better for her. She did follow-up with GI regarding the abnormal barium swallow. [place] that it was over read. Currently stable. She does have the hiatal hernia. She is asymptomatic at this time. She will be getting all the vaccines. She is due for her pneumonia shot. She is also going to get the booster for COVID. She already got RSV and flu. Will follow-up in 6-8 months if she has any issues prior to that she will call for an earlier assessment. 11/29/2024 the patient is here for a pulmonary follow-up visit. Overall she is doing well. She did much better switching out of Trelegy to Wixela. She has been tolerating a lot better. She denies any chest tightness or pain like she was having before. She is also monitoring closely her reflux disease. She stays active and she continues to work regularly. She is up-to-date with all her vaccines except for her shingles vaccine that she needs to get. The patient also had a pulmonary nodule last seen back in 2022 measuring 5-6 mm in size. At this point will repeat her CT scan to address her pulmonary nodules specially t he larger nodule in the right upper lobe. Otherwise the patient can always call for an earlier assessment. 04/21/2025 the patient is here for pulmonary follow-up visit. Overall she is doing well. She is tolerating her medication well. She is happy she got off the Trelegy because it was so expensive. Dorota is working just fine. She is also taking the Daliresp 500 mcg dose that is very affecting beneficial. She is staying active and she is exercising regularly. The patient did have a CT scan of the chest which I personally reviewed. Her masslike density in the left lower lobe appears to have truncal little bit although still significant in size. We did review her previous CAT scan also from December 2024 and also reviewed the PET scan demonstrating some mild activity that lower base. Therefore, will have to continue to monitor this closely every 6 months for now until it continues to decrease in size. She also has a significant hiatal hernia. She is working closely with her GI doctor and following the reflux diet. Overall the patient is doing well will plan to follow-up in November after her repeat CAT scan. [facility] Medical History (Updated 01/03/25 @ 12:47 by Ramon Valdovinos MD) Abnormal barium swallow Asthma-COPD overlap syndrome Dyspnea Tubular adenoma of colon (~2009) Ulcerative proctitis Hyperlipidemia Osteoporosis (~2008) Hiatal hernia Asthma Pneumonia Pulmonary nodules Takotsubo cardiomyopathy Surgical History History of endoscopy History of surgery on wrist History of hysterectomy History of colonoscopy Family History Daughter No problems noted. Father No problems noted. Mother No problems noted. Sister In good health Sister In good health Brother In good health Son In good health Daughter In good health Social History Housing: House Alcohol intake: never Patient Tobacco Use Status: Never used Tobacco e-Cigarette/Vaping Use: Never Used Second Hand Smoke Exposure: No service: No Current occupational status: retired Cognitive needs: No Hearing needs: No Vision needs: No Review of Systems Const Denies fever(s) and Denies headache(s) Eyes Denies loss of vision ENT Denies vertigo, Denies dizziness, Denies headache(s) and Denies sore throat Card Denies chest pain, Denies leg edema and Denies lightheadedness Resp Denies cough, Denies hemoptysis and Denies wheezing GI Denies abdominal pain, Denies melena, Denies constipation, Denies diarrhea and Denies vomiting Denies urinary frequency, Denies dysuria and Denies urinary urgency Musc Denies arthralgias, Denies joint swelling, Denies numbness and Denies tingling Neuro Denies Abnormal speech present, Denies behavioral changes, Denies vertigo, Denies dizziness, Denies headache(s), Denies loss of vision, Denies memory loss, Denies numbness and Denies tingling Psych Denies anxiety, Denies behavioral changes, Denies depression, Denies memory loss and Denies panic attacks Dawood/Lymph Denies easy bleeding and Denies easy bruising Aller/Immun Denies wheezing Physical Exam Vital Signs: Last Vital Signs Pulse 62 04/21/25 08:55 BP 108/58 L 04/21/25 08:55 Pulse Ox 96 04/21/25 08:55 Oxygen Delivery Method Room Air 04/21/25 08:55 BMI result Body Mass Index 27.0 Const General: alert Neck Neck: Yes normal visual inspection, Yes full ROM and Yes no lymphadenopathy Chest Chest palpation & inspection: normal inspection of the chest Resp Effort & Inspection: normal respiratory effort and No prolonged expiratory phase Auscultation: clear to auscultation bilaterally, no rhonchi and no wheezes Cardio Rate: regular rate Rhythm: regular rhythm Heart sounds: S1 normal heart sound present and S2 normal heart sound present GI Palpation (GI): Soft to palpation and nontender Auscultation: normal bowel sounds Skin General skin exam: rashes and/or lesions noted Neuro Speech: No Abnormal speech present Assessment & Plan Assessment & Plan (1) Asthma-COPD overlap syndrome: Code(s): J44.89 - Other specified chronic obstructive pulmonary disease Category: Medical (2) Asthma: Code(s): J45.909 - Unspecified asthma, uncomplicated Category: Medical Qualifiers: Asthma complication type: uncomplicated Asthma persistence: persistent Asthma severity: moderate Qualified Code(s): J45.40 - Moderate persistent asthma, uncomplicated (3) Pulmonary nodules: Code(s): R91.8 - Other nonspecific abnormal finding of lung field Category: Medical (4) Hiatal hernia: Code(s): K44.9 - Diaphragmatic hernia without obstruction or gangrene Category: Medical (5) Lung mass: Code(s): R91.8 - Other nonspecific abnormal finding of lung field Category: Medical Plan continue Wixela continue Daliresp 500 LISA as needed Reflux diet CT chest in 6 months F/U 6-8 months Orders: Orders [address] chest wo IV con 10/24/25 R91.8 - Other nonspecific abnormal finding of lung field Coding Level of Care Code Est Pt Level 4 (10943) Complex EM visit Add On G2211 Diagnoses Asthma-COPD overlap syndrome J44.89 Moderate persistent asthma without complication J45.40 Asthma complication type: uncomplicated Asthma persistence: persistent Asthma severity: moderate Pulmonary nodules R91.8 Hiatal hernia K44.9 Lung mass R91.8 Time Spent (min) 17
[2025-04-21 08:55] VITALS: BP 108/58; PULSE 62; O2SAT 96; BMI 27.0
--- OUTSIDE RECORDS SUMMARY | 2025-04-21 10:10 | XMS_ITS | Patient Health Record ---
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) Gastric polyps (K31.7) Active confirmed Problem 417934498 Abnormal UGI series (R93.3) Active confirmed Problem 77648600 Ulcerative proctitis without complication (K51.20) Active confirmed Problem 023964312 Adenomatous poly p of colon, unspecified part [...] visit Encounters Encounter Location Date Provider Diagnosis [facility] [address] [place] [address] 03/14/2025 Naeem Lopez Jr Ulcerative proctitis without [...] Lim Terence allred Jr, 03/20/2026 09:00:00 AM, [address] [place] [address], [address], [place], [address], Insurance Providers Payer Name Payer Address Payer Phone Subscriber Number Group Number Insured Name Patient Relationship to Insured Coverage Start Date Coverage End Date [facility] [address] [place], [place] [id number] [phone] [id number] SILVINO MOTT (Shameka) Self - patient is [...]
== END 2025-04-21 09:23 | disposition home or self-care (01) ==
LOC: HO.HPS 08:53
PROVIDERS: PCP Physician Assistant; Visit Provider Hospitalist
DX: J44.89 Other specified chronic obstructive pulmonary disease (principal); J45.40 Moderate persistent asthma, uncomplicated; R91.8 Other nonspecific abnormal finding of lung field; K44.9 Diaphragmatic hernia without obstruction or gangrene
CPT/HCPCS: 99214; G2211

== ENCOUNTER 2025-05-05 14:16 | Outpatient (AMB) | payer MEDICARE, SELFPAY ==
--- NOTE | 2025-05-05 14:22 | A.OFFPC_ITS ---
Vital Signs 05/05/25 14:24 Height 5 ft 5 in Weight 160 lb 4 oz BMI 26.7 BP 126/68 Blood Pressure Location Lt brachial Position Sitting Pulse 73 Pulse Source Pulse Oximeter Temp 97.1 F Temp Source Temporal Artery Scan Pulse Oximetry (%) 98 Oxygen Delivery Method Room Air Intake Visit Reasons: annual exam Intake Note: Patient is here today for a physical. 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 Carriage Operator: Not Required per policy Accompanied by: Self / Same As Patient Allergies No Known Allergies Allergy (Verified 05/05/25 14:49) Medication List - Last Reconciled 05/05/25 by Deangelo Alonso PA-C albuterol sulfate 2.5 mg (3 mL) inhalation Q6H PRN 30 days albuterol sulfate 90 mcg/actuation 2 inhalations inhalation Q6H PRN 30 days ascorbate calcium (vitamin C) 500 mg PO DAILY aspirin 81 mg PO DAILY atorvastatin 80 mg PO DAILY dicyclomine 20 mg PO fluticasone propion-salmeterol 250-50 mcg/dose (Wixela Inhub) 1 inh inhalation Q12H 30 days lactobacillus combination no.8 (Adult Probiotic) 3,000 mmu cells PO DAILY lisinopril 2.5 mg PO DAILY 90 days metoprolol succinate ER 25 mg PO DAILY 90 days multivitamin 1 tab PO DAILY omega-3 fatty acids (Fish Oil Concentrate) 1,000 mg PO DAILY roflumilast (Daliresp) 500 mcg PO DAILY 30 days Tobacco use date assessed: 05/05/25 Fall risk assessment: No Falls in past year Last assessed Fall Risk: 05/05/25 Dental Screening Dental Screen Date: 05/05/25 Did you have a dental visit in the last 12 months?: Yes Did you have a dental problem in the last 6 months where you did not have access to dental care?: No Was dental information given to patient?: Patient has dentist HPI annual exam HPI Details Patient is a 79 y/o F being evaluated today via telephone. Patient has a past medical history significant for hypertension, moderate persistent asthma, pulmonary nodules. Asthma: Patient continues follow-up with her surveillance supervisor. She denies any asthma exacerbations. She only has to use her albuterol inhaler on a p.r.n. basis. Does have a lung mass though it has been evaluated by pulmonology and recent CT showed decrease in size of the lung mass .. Osteoporosis:? Her most recent bone density ( 2020) showing a T-score -2.9 .. Hypertension:? Blood pressure has been stable with current doses of blood pressure medication.? Patient reports that home blood pressures are stable issue denies any headaches, vision issues or chest discomfor. . Mammo: Up-to-date with mammogram Colorectal cancer screening: Colonoscopy done in 2021 , polyps found, no furthur unless needed VAccine: UTD with Tdap, UTD PCV-23 , UTD with COVID vac and Flu vac , Considering shingles vaccine PFSH Medical History Abnormal barium swallow Asthma-COPD overlap syndrome Dyspnea Tubular adenoma of colon (~2009) Ulcerative proctitis Hyperlipidemia Osteoporosis (~2008) Hiatal hernia Asthma Pneumonia Pulmonary nodules Takotsubo cardiomyopathy Surgical History History of cataract surgery History of endoscopy History of surgery on wrist History of hysterectomy History of colonoscopy Family History Daughter No problems noted. Father No problems noted. Mother No problems noted. Sister In good health Sister In good health Brother In good health Son In good health Daughter In good health Social History Housing: House Alcohol intake: never Patient Tobacco Use Status: Never used Tobacco e-Cigarette/Vaping Use: Never Used Second Hand Smoke Exposure: No service: No Current occupational status: retired Cognitive needs: No Hearing needs: No Vision needs: Yes (Reading glasses) Questionnaire PHQ-9 Over the last 2 weeks, how often have you been bothered by any of the following problems? 1. Little interest or pleasure in doing things: not at all 2. Feeling down, depressed, or hopeless: not at all 3. Trouble falling or staying asleep, or sleeping too much: not at all 4. Feeling tired or having little energy: not at all 5. Poor appetite or overeating: not at all 6. Feeling bad about yourself - or that you are a failure or have let yourself or your family down: not at all 7. Trouble concentrating on things, such as reading the newspaper or watching television: not at all 8. Moving or speaking so slowly that other people could have noticed. Or the opposite - being so fidgety or restless that you have been moving around a lot more than usual: not at all 9. Thoughts that you would be better off or of hurting yourself in some way: not at all Total score: 0 Depression Screening Interpretation: Negative Depression Screening Done: Yes 13953 - PHQ-9 Billing: Yes Source: Developed by Drs. Paolo Atkins, Karen Canales, Ricardo Butcher and colleagues, with an educational claudia from [employer]. Thrive Questionnaire Date Thrive assessed: 05/05/25 I am a: Patient What is your living situation today?: I have a steady place to live Within the past 12 months, did the food you bought not last and you didn't have the money to get more?: Never true Within the past 12 months, did you worry whether your food would run out before you got money to buy more?: Never true Do you have trouble paying for medicines?: No Do you have trouble getting transportation to medical appointments?: No Do you have trouble paying your heating and electricity bill?: No Do you have trouble taking care of your child, family member or friend?: No Do you have trouble with day-to-day activities such as bathing, preparing meals, shopping, managing finances, etc.?: No Are you currently unemployed and looking for a job?: No Are you interested in more education?: No Please select the resources that you would like help with: None Currently or been in a relationship where the following occur: No concerns reported THRIVE Score: 0 AUDIT C Alcohol Use Questionnaire (AUDIT-C) 1. How often do you have a drink containing alcohol?: Never Total Score: 0 SHARITA-7 AMB Questionnaire SHARITA-7 Date SHARITA - 7 assessed: 05/05/25 Feeling nervous, anxious, or on edge: 0 = Not at all Not being able to stop or control worryin = Not at all Worrying too much about different things: 0 = Not at all Trouble relaxin = Not at all Being so restless that it is hard to sit still: 0 = Not at all Becoming easily annoyed or irritable: 0 = Not at all Feeling afraid as if something awful might happen: 0 = Not at all Total SHARITA-7 score (0-4 normal; 5-9 mild; 10-14 moderate; 15-21 severe): 0 Source: Developed by Drs. Paolo Atkins, Karen Canales, Ricardo Butcher and colleagues, with an educational claudia from [employer]. SHARITA-7 Assessment Billing SHARITA-7 Assessment Tool: SHARITA-7 Assessment 37730 Review of Systems Const Denies body aches, Denies chills, Denies excessive sweating, Denies fatigue, Denies fever(s) and Denies headache(s) Eyes Denies blurry vision ENT Denies dysphagia, Denies vertigo, Denies dizziness, Denies headache(s), Denies hearing loss and Denies tinnitus Card Denies chest pain, Denies chest pain with activity, Denies syncope, Denies irregular heart rhythm and Denies dyspnea Resp Denies chest congestion, Denies cough, Denies hemoptysis, Denies dyspnea and Denies wheezing GI Denies abdominal pain, Denies melena, Denies hematochezia, Denies coffee ground emesis, Denies dysphagia, Denies diarrhea, Denies nausea and Denies vomiting Denies urinary frequency, Denies dysuria, Denies urinary hesitancy and Denies urinary urgency Musc Denies arthralgias, Denies limited range of motion, Denies muscle cramps and Denies muscle weakness Skin/Breast Denies rash and Denies skin ulcer Neuro Denies Abnormal speech present, Denies confusion, Denies vertigo, Denies dizziness, Denies syncope, Denies headache(s), Denies memory loss and Denies seizure-like activity Psych Denies anxiety, Denies confusion, Denies depression, Denies memory loss, Denies panic attacks and Denies paranoia Endo Denies excessive sweating, Denies fatigue, Denies flushing, Denies polydipsia and Denies polyuria Aller/Immun Denies wheezing Physical exam (Primary Care) Vital Signs: Last Vital Signs Temp 97.1 F 05/05/25 14:24 Pulse 73 05/05/25 14:24 BP 126/68 05/05/25 14:24 Pulse Ox 98 05/05/25 14:24 Oxygen Delivery Method Room Air 05/05/25 14:24 BMI result Body Mass Index 26.7 Tobacco/Smoking Status: Tobacco use Status Tobacco use date assessed 05/05/25 05/05/25 14:32 Patient Tobacco Use Status Never used Tobacco 05/05/25 14:32 e-Cigarette/Vaping Use Never Used 05/05/25 14:32 PHQ-9: PHQ-9 Score PHQ-9: Total score 0 05/05/25 14:32 Depression Screening Interpretation: Negative Thrive Assessment: Date of Thrive Assessment Date Thrive assessed 05/05/25 05/05/25 14:32 Currently or been in a relationship where the following occur: No concerns reported Const General: cooperative, comfortable, no acute distress, alert and awake; No confusion Orientation/consciousness: oriented to person, oriented to place, patient oriented x3 and No confusion HENMT Head: Yes normocephalic Ears: external ears normal and TM's normal bilaterally Face and sinus: No sinus tenderness Mouth: Normal oral and palatal mucosa present and tongue normal Teeth and gingiva: dentition normal and gingiva normal Throat: Yes posterior oropharynx normal, Yes tonsils normal and Yes uvula midline Eyes Conjunctivae: conjunctivae normal Sclerae: sclerae normal Pupils: Equal, round and reactive pupils present EOM: EOMs intact bilaterally Direct Ophthalmoscopy: No no photophobia Neck Neck: Yes no lymphadenopathy, No tender and Yes no JVD Thyroid: Thyroid normal Carotids: no bruits Chest Chest palpation & inspection: no tenderness Resp Effort & Inspection: normal respiratory effort, no audible wheezes, not labored and no stridor Auscultation: no crackles, no rales, no rhonchi and no wheezes Cardio Jugular venous distension: no JVD Rate: regular rate, not bradycardic and not tachycardic Rhythm: regular rhythm Bruits: no carotid bruits Peripheral pulses: Peripheral pulses 2+ throughout GI Inspection: Yes normal to inspection, No abdominal wall ecchymosis and No visible herniation Palpation (GI): Soft to palpation, nontender, no guarding, not rigid and No hepatosplenomegaly present Auscultation: normoactive bowel sounds General: Yes no CVA tenderness Back/Spine/Pelvis Back: no CVA tenderness and No back tenderness Cervical Spine: cervical ROM normal Thoracic/Lumbar Spine: thoracic and lumbar spine normal to inspection, straight leg raise negative bilaterally, No thoraco-lumbar ROM limited and No lumbar spinal tenderness Skin Lesions: no lesions Rashes: no rashes Wounds: no wounds Neuro General: oriented to person, oriented to place, patient oriented x3, CN's II-XI intact bilaterally and No confusion Cranial nerves: Yes Equal, round and reactive pupils present and Yes Normal accommodation reflex present Cognition (Neuro): normal cognition Speech: No Abnormal speech present Gait exam (Neuro): Normal gait present Motor exam (neuro): 5/5 motor strength present throughout Extrem Right upper extremity: full ROM; no cyanosis Left upper extremity: full ROM; no cyanosis Right lower extremity: no edema Left lower extremity: no edema Psych Appearance: grossly normal Mental Status: mental status grossly normal Affect: normal affect Attitude: cooperative Thought process: Normal thought process present Coding Level of Care Code Est Pt Prev Care >65y(20481) Diagnoses Annual physical exam Z00.00 Asthma-COPD overlap syndrome J44.89 Essential hypertension I10 Hypertension type: essential hypertension Lung mass R91.8 Age related osteoporosis, unspecified pathological fracture presence M81.0 Osteoporosis type: age-related Presence of current pathological fracture: unspecified Mixed hyperlipidemia E78.2 Hyperlipidemia type: mixed hyperlipidemia Impaired glucose metabolism R73.09 Additional Codes PHQ-9 - 80102 - PHQ-9 Billing: Yes ([id number]) SHARITA-7 Assessment Billing - SHARITA-7 Assessment Tool: SHARITA-7 Assessment 60430 ([id number]) Assessment & Plan Assessment & Plan (1) Annual physical exam: Code(s): Z00.00 - Encounter for general adult medical examination without abnormal findings Category: Medical Plan: As per HPI (2) Asthma-COPD overlap syndrome: Code(s): J44.89 - Other specified chronic obstructive pulmonary disease Category: Medical Plan: Patient continues to follow up pulmonology, continues on Wixela inhaler and montelukast. Needs a refill on montelukast. (3) HTN (hypertension): Code(s): I10 - Essential (primary) hypertension Category: Medical Qualifiers: Hypertension type: essential hypertension Qualified Code(s): I10 - Essential (primary) hypertension Plan: Patient's blood pressure acceptable today in office. She has been able to maintain good blood pressure with diet and exercise. She continues with the use of metoprolol. Goal blood pressure to remain below 140/90 (4) Lung mass: Code(s): R91.8 - Other nonspecific abnormal finding of lung field Category: Medical Plan: Patient continues to follow up pulmonology and most recent CT scan showing decreased size in her lung mass. (5) Osteoporosis: Onset Date: ~2008 Comment: (osteopenia since 1999, ostoporosis since 2008, Bone Dexa T-score -2.9 05/29/21) Code(s): M81.0 - Age-related osteoporosis without current pathological fracture Category: Medical Qualifiers: Osteoporosis type: age-related Presence of current pathological fracture: unspecified Qualified Code(s): M81.0 - Age-related osteoporosis without current pathological fracture Plan: Patient does have history of osteoporosis, was on Fosamax for a few years. She would like to recheck her bone density to evaluate for continued need for medication. (6) Hyperlipidemia: Code(s): E78.5 - Hyperlipidemia, unspecified Category: Medical Qualifiers: Hyperlipidemia type: mixed hyperlipidemia Qualified Code(s): E78.2 - Mixed hyperlipidemia Plan: Patient's most recent lipid panel showing excellent control over total cholesterol and LDL. Will continue her current dose of atorvastatin with goal LDL to remain below 130 (7) Impaired glucose metabolism: Code(s): R73.09 - Other abnormal glucose Category: Medical Plan: Patient has a history of impaired glucose metabolism. Most recent fasting blood sugar 102 and most recent A1c of 5.9. She will continue working on lifestyle and dietary modifications to reduce her fasting blood sugar. Orders: Orders XR DEXA axial skeleton Today M81.0 - Age-related osteoporosis without current pathological fracture, Z78.0 - Asymptomatic menopausal state Microalbumin, Random (w Creat) Today I10 - Essential (primary) hypertension Comprehensive [place]. Panel Fast Today I10 - Essential (primary) hypertension Complete Blood Count no Diff Today I10 - Essential (primary) hypertension Hemoglobin A1c Today R73.09 - Other abnormal glucose Medications: New montelukast 10 mg PO DAILY 90 tabs 1RF 90 days J45.40 - Moderate persistent asthma, uncomplicated Patient Instructions: Goal: Blood pressure to remain below 140/90, LDL to be below 130, fasting blood sugars goal to be below 100 Barriers: Adherence to physical activity and healthy eating habits
[2025-05-05 14:24] VITALS: BP 126/68; PULSE 73; TEMP 36.2; O2SAT 98; BMI 26.7
--- OUTSIDE RECORDS SUMMARY | 2025-05-05 15:52 | XMS_ITS | Patient Health Record ---
Author Organization [facility] Address [address] [place] [id number] Care Team Providers Care Site Manager Name Role Phone Deangelo Alonso Primary [...] Problem Status W/U Status Risk Notes Problem 00264022 Colitis (K52.9) Active confirmed Problem 15065929 Hiatal hernia (K44.9) Active confirmed Problem Benign neoplasm of stomach (10542937) Gastric polyps (K31.7) Active confirmed Problem [id number] Abnormal UGI series (R93.3) Active confirmed Problem 36205595 Ulcerative proctitis without complication (K51.20) Active confirmed Problem [id number] Adenomatous poly p of colon, unspecified part [...] Encounters Encounter Location Date Provider Diagnosis [facility] [address] [place] [address] 03/14/2025 Naeem Lopez Jr Ulcerative proctitis without [...] Lim Terence allred Jr, 03/20/2026 09:00:00 AM, [address] [place] [address], [address], [place], [address], Insurance Providers Payer Name Payer Address Payer Phone Subscriber Number Group Number Insured Name Patient Relationship to Insured Coverage Start Date Coverage End Date [facility] [address] [place], [place] [id number] SILVINO MOTT (Shameka) Self - patient is [...]
== END 2025-05-05 15:17 | disposition home or self-care (01) ==
LOC: HO.HMCH 14:16
PROVIDERS: PCP Physician Assistant; Visit Provider Physician Assistant
DX: Z00.00 Encounter for general adult medical examination without abnormal findings (principal); J44.89 Other specified chronic obstructive pulmonary disease; I10 Essential (primary) hypertension; R91.8 Other nonspecific abnormal finding of lung field; M81.0 Age-related osteoporosis without current pathological fracture; E78.2 Mixed hyperlipidemia; R73.09 Other abnormal glucose

== ENCOUNTER → 2025-05-05 14:16 | Outpatient (BNVA) | payer MEDICARE, SELFPAY | PROVIDERS: PCP Physician Assistant; Visit Provider Physician Assistant | DX: Z00.00 Encounter for general adult medical examination without abnormal findings (principal); I10 Essential (primary) hypertension; J45.909 Unspecified asthma, uncomplicated; R91.8 Other nonspecific abnormal finding of lung field; M81.0 Age-related osteoporosis without current pathological fracture; J44.89 Other specified chronic obstructive pulmonary disease; E78.2 Mixed hyperlipidemia; R73.09 Other abnormal glucose; Z78.0 Asymptomatic menopausal state | CPT/HCPCS: 96127; 99397 ==